=== PATIENT | female | born 1990 | race Caucasian/White ===

== ENCOUNTER 2017-11-24 22:29 | Emergency (ER) | payer OTHER ==
[2017-11-25] MEDS ORDERED: FENTANYL CITR 100 MCG/2 ML ONE (01:06)
[2017-11-25] MEDS ORDERED: NA CHLORIDE 0.9% 1,000 ML ONE (01:06)
[2017-11-25] MEDS ORDERED: ONDANSETRON 4 MG/2 ML VIAL ONE (01:06)
[2017-11-25] MEDS ORDERED: LORazepam 2 MG/ML VIAL ONE (01:23)
[2017-11-25 01:27] LABS: Absolute Monocytes 0.8 K/uL (0.1-1.3); Absolute Neutrophil 12.5 K/uL (1.8-8.0); Basophils % 0.1 % (0-1.3); Eosinophils % 0.1 % (0-4.4); Hematocrit 29.2 % (36.0-45.0); Lymphocytes % 6.7 % (15.3-44.8); MCH 23.3 pg (27.0-35.0); MCV 73.5 fL (80-100); MPV 9.2 fL (7.6-11.3); Monocytes % 5.5 % (3.3-12.3); RBC Red Blood Cell Count 3.97 M/uL (3.86-4.86)
[2017-11-25 01:41] LABS: Bicarbonate 22 mEq/L (21-31); Glucose Level 103 mg/dL (65-120); Potassium 3.4 mEq/L (3.6-5.0); Sodium Level 132 mEq/L (135-145)
[2017-11-25 01:46] LABS: ALT/SGPT 11 IU/L (10-60); AST/SGOT 18 IU/L (10-42); Albumin 3.3 g/dL (3.2-5.5); Alkaline Phosphatase 75 IU/L (42-121); Bilirubin Direct 0.1 mg/dL (0-0.2); Bilirubin Total 0.3 mg/dL (0.3-1.2); Creatine Phosphokinase 37 IU/L (22-269); Magnesium 1.8 mg/dL (1.8-2.5); Protein, Total 6.6 g/dL (6.0-8.3)
[2017-11-25 01:48] LABS: CKMB Creatine Kinase MB 1.1 ng/ml (0.3-4.0)
[2017-11-25 01:59] LABS: BUN Blood Urea Nitrogen < 5 mg/dL (6-20)
[2017-11-25 02:04] LABS: Protime INR 1.01
[2017-11-25 02:10] LABS: Blood Morphology Comment NOTED (NOT SEEN); Ovalocytes 2+; Platelet Estimate ADEQ
[2017-11-25] MEDS ORDERED: POTASSIUM CL SA 10 MEQ TAB PO ONE (02:42)
--- NOTE | 2017-11-25 02:45 | ER ---
Nurse's Notes [facility] Name: Treasure Srivastava Age: 27 yrs Sex: Female : 1990 Arrival Date: 11/24/2017 Time: 22:31 Bed 18 Private MD: Diagnosis: Chest pain on breathing; related conditions, unspecified, second trimester;Hypokalemia;Elevated white blood cell count;Bandemia Presentation: 11/24 22:37 Presenting complaint: Patient states: chest pain and SOA that started around 3am, kb1 reports awoke her out of her sleep. States pain has been constant and getting worse. States has a history of anxiety but this is different. Transition of care: patient was not received from another setting of care. Onset of symptoms was November 24, 2017 at 03:00. Care prior to arrival: None. 22:37 Method Of Arrival: Ambulatory kb1 22:37 Acuity: KAILEY 3 kb1 Triage Assessment: 22:40 General: Appears uncomfortable, Behavior is cooperative. Pain: Complains of pain in kb1 chest. Neuro: Level of Consciousness is awake, alert, obeys commands, Oriented to person, place, time, situation. Cardiovascular: Patient's skin is warm and dry. Respiratory: Airway is patent Respiratory effort is even, unlabored, Respiratory pattern is regular, symmetrical. GI: No signs and/or symptoms were reported involving the gastrointestinal system. : No signs and/or symptoms were reported regarding the genitourinary system. 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 - Social history:: Smoking status: Patient/guardian denies using tobacco. - Family history:: not pertinent. Screenin:43 Abuse screen: Denies threats or abuse. Nutritional screening: No deficits noted. kb1 Tuberculosis screening: No symptoms or risk factors identified. Fall Risk None identified. Assessment: 22:43 Reassessment: No changes from previously documented assessment. see triage assessment. kb1 23:42 Reassessment: Patient and/or family updated on plan of care and expected duration. Pain kb1 level reassessed. Patient is alert, oriented x 3, equal unlabored respirations, skin warm/dry/pink. complains of increased pain. 11/25 01:27 Reassessment: Pt decided that she did not want the Fentanyl and was just anxious and fc wanting something for that. Discussed with Dr Knutson and pt to get Ativan 0.5 mg ivp. 02:11 Reassessment: Patient and/or family updated on plan of care and expected duration. Pain kb1 level reassessed. Patient is alert, oriented x 3, equal unlabored respirations, skin warm/dry/pink. 03:06 Reassessment: Pt refused potassium and states wants to leave. AMA paperwork given to Pt kb1 and signed. Vital Signs: 11/24 22:40 BP 140 / 94; Pulse 86; Resp 22; Temp 98.1; Pulse Ox 100% ; Weight 72.57 kg; Height 5 kb1 ft. 5 in. (165.10 cm); Pain 10/10; 23:43 BP 134 / 82; Pulse 104; Resp 22; Pulse Ox 99% ; kb1 11/25 00:50 BP 128 / 77; Pulse 82; Resp 20; Pulse Ox 100% on R/A; Pain 10/10; fc 02:11 BP 125 / 76; Pulse 88; Resp 18; Pulse Ox 99% ; kb1 11/24 22:40 Body Mass Index 26.63 (72.57 kg, 165.10 cm) kb1 Vitals: 00:49 Heart Tones 148. ED Course: 11/24 22:31 Patient arrived in ED. do 22:37 Guillermina Bee, RN is Primary Nurse. kb1 22:39 Triage completed. kb1 22:40 Arm band placed on. kb1 22:43 Patient has correct armband on for positive identification. Placed in gown. Bed in low kb1 position. Call light in reach. Side rails up X 1. groundwater monitoring technician on. Pulse ox on. NIBP on. 22:43 No provider procedures requiring assistance completed. Patient maintains SpO2 kb1 saturation greater than 95% on room air. 11/25 00:30 Missed attempt(s): 20 gauge in right antecubital area. fc 00:35 Missed attempt(s): 22 gauge in left antecubital area. fc 00:44 Initial lab(s) drawn, by me, sent to lab. Inserted saline lock: 22 gauge in right aa1 forearm, using aseptic technique. Blood collected. 00:50 Sunny Knutson MD is Attending Physician. marissa 02:18 X-ray completed. Portable x-ray completed in exam room. Patient tolerated procedure kw well. 02:20 XRAY Chest (1 view) In Process Unspecified. EDMS 03:08 IV discontinued, intact, bleeding controlled, No redness/swelling at site. Pressure kb1 dressing applied. Administered Medications: 01:10 Drug: NS 0.9% 1000 ml Route: IV; Rate: 1 bolus; Site: right forearm; fc 01:30 Drug: Ativan 0.5 mg Route: IVP; Site: right antecubital; fc 02:10 Follow up: Response: No adverse reaction kb1 02:09 Drug: Ativan 0.5 mg Route: IVP; Site: right forearm; kb1 03:05 Follow up: Response: No adverse reaction kb1 02:10 Not Given (Patient Refused): Zofran 4 mg IVP once; over 2 minutes kb1 02:10 Not Given (Patient Refused): fentaNYL (PF) 25 mcg IVP once kb1 03:04 Not Given (Patient Refused): Potassium Chloride 20 mEq PO once kb1 Outcome: 02:45 Discharge ordered by . marissa 03:09 AMA AMA form signed kb1 03:09 Condition: stable 03:14 Patient left the ED. kb1 Signatures: Dispatcher [employer] EDMS Ami Pepper, HEIDY RN aa1 Sunny Knutson MD MD cha Chretien, Felicia RN RN Carly Ocampo Danielle do Brown, Kristina, RN RN kb1
--- NOTE | 2017-11-25 02:45 | EDPHYS ---
Physician Documentation [facility] Name: Treasure Srivastava Age: 27 yrs Sex: Female : 1990 Arrival Date: 11/24/2017 Time: 22:31 Bed 18 Private MD: ED Physician Sunny Knutson HPI: 11/25 00:55 This 27 yrs old Female presents to ER via Ambulatory with complaints of Chest marissa Pain, Breathing Difficulty, 16 weeks. 00:55 This 27 yrs old Female presents to ER via Ambulatory with complaints of Chest marissa Pain, Breathing Difficulty, 16 weeks. 00:55 The patient or guardian reports chest pain that is located primarily in the substernal marissa area. The pain does not radiate. Associated signs and symptoms: Pertinent positives: cough, shortness of breath. The chest pain is described as squeezing. Modifying factors: The symptoms are alleviated by nothing. the symptoms are aggravated by breathing. Severity of pain: At its worst the pain was mild moderate in the emergency department the pain is unchanged. The patient has experienced similar episodes in the past, a few times, panic attacks. READING SPECIALIST: 11/24 22:40 Currently kb1 Historical: - Allergies: 22:40 No Known Allergies; kb1 - Home Meds: 22:40 none [Active]; kb1 - PMHx: 22:40 Anxiety; kb1 - PSHx: 22:40 None; kb1 - Immunization history:: Flu vaccine is up to date. - Social history:: Smoking status: Patient/guardian denies using tobacco. - Family history:: not pertinent. ROS: 11/25 00:55 Constitutional: Negative for fever, chills, and weight loss, Eyes: Negative for injury, marissa pain, redness, and discharge, ENT: Negative for injury, pain, and discharge, Neck: Negative for injury, pain, and swelling, Abdomen/GI: Negative for abdominal pain, nausea, vomiting, diarrhea, and constipation, Back: Negative for injury and pain, : Negative for injury, bleeding, discharge, and swelling, MS/Extremity: Negative for injury and deformity, Skin: Negative for injury, rash, and discoloration, Neuro: Negative for headache, weakness, numbness, tingling, and seizure. Cardiovascular: Positive for chest pain. Respiratory: Positive for shortness of breath. Exam: 00:55 Constitutional: This is a well developed, well nourished patient who is awake, alert, marissa and in no acute distress. Head/Face: Normocephalic, atraumatic. Eyes: Pupils equal round and reactive to light, extra-ocular motions intact. Lids and lashes normal. Conjunctiva and sclera are non-icteric and not injected. Cornea within normal limits. Periorbital areas with no swelling, redness, or edema. ENT: Nares patent. No nasal discharge, no septal abnormalities noted. Tympanic membranes are normal and external auditory canals are clear. Oropharynx with no redness, swelling, or masses, exudates, or evidence of obstruction, uvula midline. Mucous membranes moist. Neck: Trachea midline, no thyromegaly or masses palpated, and no cervical lymphadenopathy. Supple, full range of motion without nuchal rigidity, or vertebral point tenderness. No Meningismus. Chest/axilla: Normal chest wall appearance and motion. Nontender with no deformity. No lesions are appreciated. Cardiovascular: Regular rate and rhythm with a normal S1 and S2. No gallops, murmurs, or rubs. Normal PMI, no JVD. No pulse deficits. Respiratory: Lungs have equal breath sounds bilaterally, clear to auscultation and percussion. No rales, rhonchi or wheezes noted. No increased work of breathing, no retractions or nasal flaring. Abdomen/GI: Soft, non-tender, with normal bowel sounds. No distension or tympany. No guarding or rebound. No evidence of tenderness throughout. Back: No spinal tenderness. No costovertebral tenderness. Full range of motion. Female : Normal external genitalia. Skin: Warm, dry with normal turgor. Normal color with no rashes, no lesions, and no evidence of cellulitis. MS/ Extremity: Pulses equal, no cyanosis. Neurovascular intact. Full, normal range of motion. Neuro: Awake and alert, GCS 15, oriented to person, place, time, and situation. Cranial nerves II-XII grossly intact. Motor strength 5/5 in all extremities. Sensory grossly intact. Cerebellar exam normal. Normal gait. Psych: Awake, alert, with orientation to person, place and time. Behavior, mood, and affect are within normal limits. 00:57 Musculoskeletal/extremity: DVT Exam: No signs of deep vein thrombosis. no pain, no marissa swelling, no tenderness, negative Homans' sign noted on exam, no appreciated bluish discoloration, no erythema, no increased warmth. Vital Signs: 11/24 22:40 BP 140 / 94; Pulse 86; Resp 22; Temp 98.1; Pulse Ox 100% ; Weight 72.57 kg; Height 5 kb1 ft. 5 in. (165.10 cm); Pain 10/10; 23:43 BP 134 / 82; Pulse 104; Resp 22; Pulse Ox 99% ; [facility] 11/25 00:50 BP 128 / 77; Pulse 82; Resp 20; Pulse Ox 100% on R/A; Pain 10/10; fc 02:11 BP 125 / 76; Pulse 88; Resp 18; Pulse Ox 99% ; [facility] 11/24 22:40 Body Mass Index 26.63 (72.57 kg, 165.10 cm) [facility] MDM: 00:51 Patient medically screened. [facility] 00:57 Data reviewed: vital signs, nurses notes, lab test result(s), EKG, radiologic studies, [facility] plain films. 04 00:51 Order name: Basic Metabolic Panel; Complete Time: 02:16 11/25 00:51 Order name: BNP; Complete Time: 02:16 11/25 00:51 Order name: CBC with Diff; Complete Time: 02:16 11/25 00:51 Order name: Ckmb; Complete Time: 02:16 11/25 00:51 Order name: CPK; Complete Time: 02:16 11/25 00:51 Order name: LFT's; Complete Time: 02:16 11/25 00:51 Order name: Magnesium; Complete Time: 02:16 11/25 00:51 Order name: PT-INR; Complete Time: 02:16 11/25 00:51 Order name: Ptt, Activated; Complete Time: 02:16 11/25 00:51 Order name: Troponin (emerg Dept Use Only); Complete Time: 02:16 11/25 01:21 Order name: D-Dimer; Complete Time: 02:16 EDMS 11/25 01:28 Order name: Manual Differential; Complete Time: 02:16 EDMS 11/25 00:51 Order name: XRAY Chest (1 view) 11/25 00:51 Order name: EKG; Complete Time: 00:56 11/25 00:51 Order name: Cardiac monitoring; Complete Time: 01:43 11/25 00:51 Order name: EKG - Nurse/Tech; Complete Time: :43 11/25 00:51 Order name: IV Saline Lock; Complete Time: :42 11/25 00:51 Order name: Labs collected and sent; Complete Time: :42 11/25 00:51 Order name: O2 Per Protocol; Complete Time: : 11/25 00:51 Order name: O2 Sat Monitoring; Complete Time: :42 11/25 00:55 Order name: FHT's; Complete Time: :42 marissa Administered Medications: 01:10 Drug: NS 0.9% 1000 ml Route: IV; Rate: 1 bolus; Site: right forearm; fc 01:30 Drug: Ativan 0.5 mg Route: IVP; Site: right antecubital; fc 02:10 Follow up: Response: No adverse reaction kb1 02:09 Drug: Ativan 0.5 mg Route: IVP; Site: right forearm; kb1 03:05 Follow up: Response: No adverse reaction kb1 02:10 Not Given (Patient Refused): Zofran 4 mg IVP once; over 2 minutes kb1 02:10 Not Given (Patient Refused): fentaNYL (PF) 25 mcg IVP once kb1 03:04 Not Given (Patient Refused): Potassium Chloride 20 mEq PO once kb1 Disposition: 11/25/17 02:45 Discharged to Home. Impression: Chest pain on breathing, related conditions, unspecified, second trimester, Hypokalemia, Elevated white blood cell count, Bandemia. - Condition is Stable. - Discharge Instructions: Nonspecific Chest Pain, Potassium Content of Foods, Hypokalemia, Leukocytosis. - Prescriptions for Amoxicillin 500 mg Oral Capsule - take 1 capsule by ORAL route every 8 hours for 10 days; 21 tablet. Vitamin 27- 0.8 mg Oral Tablet - take 1 tablet by ORAL route once daily; 30 tablet. - Medication Reconciliation Form, Thank You Letter, Antibiotic Education, Prescription Opioid Use form. - Follow up: Private Physician; When: Today; Reason: Recheck today's complaints, Continuance of care, Re-evaluation by your physician. - Problem is new. - Symptoms have improved. Signatures: Dispatcher [employer] EDMS Sunny Knutson MD MD cha Chretien, Felicia, RN RN Guillermina Esteban RN RN kb1 Corrections: (The following items were deleted from the chart) 01:09 00:56 Arterial Blood Gas+RC.LAB.BRZ ordered. EDMS EDMS 01:21 00:56 D-DIMER+COAG.LAB.BRZ ordered. EDMS EDMS
[2017-11-25 03:18] VITALS: TEMP 98.1
[2017-11-25 03:22] VITALS: BP 125/76; O2SAT 99
--- NOTE | 2017-11-25 07:01 | EKG ---
Test Date: 2017-11-24 Test Time: 22:36:50 Header Up: ALEKSANDRA MEASUREMENT RESULTS: Intervals: Rate: 78 RI: 120 QRSD: 90 QT: 388 QTc: 442 [place]: P: 15 RI: 120 QRS: -5 T: 52 INTERPRETIVE STATEMENTS: Normal sinus rhythm Normal ECG Compared to ECG 04/04/2017 10:00:56 Sinus arrhythmia no longer present Electronically Signed On 11-25-17 07:01:12 CDT by Crow Javier
--- NOTE | 2017-11-25 08:11 | RAD REPORT ---
EXAM DESCRIPTION: Etelvina Single View11/25/2017 2:24 am CLINICAL HISTORY: Chest pain COMPARISON: March 2017 FINDINGS: The lungs appear clear of acute infiltrate. The heart is normal size IMPRESSION: No acute abnormalities displayed
== END 2017-11-25 03:14 | disposition home or self-care (01) ==
LOC: ER 22:29
DX: R07.1 Chest pain on breathing (principal); E87.6 Hypokalemia; D72.825 Bandemia; Z3A.16 16 weeks gestation of pregnancy
CPT/HCPCS: 36415; 71045; 80048; 80076; 82550; 82553; 83735; 83880; 84484; 85025; 85379; 85610; 85730; 93005; 99285; J2405; J3010; J7030

== ENCOUNTER 2019-02-12 03:28 | Emergency (ER) | payer OTHER, SELFPAY ==
[2019-02-12] MEDS ORDERED: METOCLOPRAMIDE 10 MG/2mL INJ ONE (04:15)
[2019-02-12] MEDS ORDERED: KETOROLAC 30 MG/ML INJ ONE ×2 (04:15→05:52)
[2019-02-12] MEDS ORDERED: DIPHENHYDRAMINE 50 MG/ML VIAL ONE (04:15)
[2019-02-12 04:24] LABS: Absolute Lymphocytes (CBC) 1.8 K/uL (0.7-4.9); Basophils % 0.5 % (0-1.3); Eosinophils % 0.9 % (0-4.4); Hematocrit 37.5 % (36.0-45.0); Lymphocytes % 19.1 % (15.3-44.8); Monocytes % 8.3 % (3.3-12.3); RBC Red Blood Cell Count 4.45 M/uL (3.86-4.86)
[2019-02-12 04:39] LABS: Potassium 3.5 mmol/L (3.5-5.1)
[2019-02-12] MEDS ORDERED: NA CHLORIDE 0.9% 1,000 ML ONE (04:59)
--- NOTE | 2019-02-12 06:31 | ER ---
Nurse's Notes [facility] Name: Treasure Srivastava Age: 28 yrs Sex: Female : 1990 Arrival Date: 02/12/2019 Time: 03:31 Bed 20 Private MD: Diagnosis: Headache Presentation: 02/12 03:35 Presenting complaint: Patient states: I'm having bad headache for 4 days now. tonight rr5 suddenly I woke up tonight because of the severe pain,more on the back of my right eye. I took Tylenol, ibuprofen, Excedrin nothing worked. denies N/V. 03:35 Transition of care: patient was not received from another setting of care. Onset of rr5 symptoms was February 08, 2019. Risk Assessment: Do you want to hurt yourself or someone else? Patient reports no desire to harm self or others. Initial Sepsis Screen: Does the patient meet any 2 criteria? No. Patient's initial sepsis screen is negative. Does the patient have a suspected source of infection? No. Patient's initial sepsis screen is negative. Care prior to arrival: Medication(s) given: Motrin, Tylenol, Excedrin. 03:35 Method Of Arrival: Ambulatory rr5 03:35 Acuity: KAILEY 3 rr5 Triage Assessment: 03:45 Headache History: Denies prior headaches. General: Appears in no apparent distress. rr5 uncomfortable, Behavior is calm, cooperative, appropriate for age. Pain: Also complains of no other associated symptoms. 03:45 Pain: Complains of pain in right eye Pain radiates to right side of the head Pain rr5 currently is 8 out of 10 on a pain scale. Quality of pain is described as aching, Pain began 4 days Is intermittent. 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 - Social history:: Smoking status: Patient/guardian denies using tobacco, Patient/guardian denies using alcohol, street drugs. - Ebola Screening: : Patient negative for fever greater than or equal to 101.5 degrees Fahrenheit, and additional compatible Ebola Virus Disease symptoms Patient denies exposure to infectious person Patient denies travel to an Ebola-affected area in the 21 days before illness onset. Screenin:45 Abuse screen: Denies threats or abuse. Denies injuries from another. Nutritional rr5 screening: No deficits noted. Tuberculosis screening: No symptoms or risk factors identified. Fall Risk None identified. Total Louis Fall Scale indicates No Risk (0-24 pts). Assessment: 03:45 General: Appears in no apparent distress. uncomfortable, Behavior is calm, cooperative, rr5 appropriate for age. 03:45 Pain: Complains of pain in right eye Pain radiates to right side of head Pain currently rr5 is 8 out of 10 on a pain scale. Quality of pain is described as aching, Pain began 4 days Is continuous. Neuro: Level of Consciousness is awake, alert, obeys commands, Oriented to person, place, time, situation, Appropriate for age. Cardiovascular: Capillary refill < 3 seconds Patient's skin is warm and dry. Respiratory: Airway is patent Respiratory effort is even, unlabored, Respiratory pattern is regular, symmetrical. GI: No signs and/or symptoms were reported involving the gastrointestinal system. : No signs and/or symptoms were reported regarding the genitourinary system. EENT: Eyes PERRLA. Reports pain in right eye. Derm: Skin is intact, Skin temperature is warm. Musculoskeletal: Circulation, motion, and sensation intact. Capillary refill < 3 seconds, Range of motion: intact in all extremities. 04:40 Reassessment: Patient appears in no apparent distress at this time. Patient is alert, rr5 oriented x 3, equal unlabored respirations, skin warm/dry/pink. awaiting for CT and laboratory result. Patient states symptoms have not improved. 05:35 Reassessment: Patient appears in no apparent distress at this time. Patient is alert, rr5 oriented x 3, equal unlabored respirations, skin warm/dry/pink. reassessment done by ED provider complaining of headache pain score 6/10,with order made and carried out. 06:40 Reassessment: Patient appears in no apparent distress at this time. Patient is alert, rr5 oriented x 3, equal unlabored respirations, skin warm/dry/pink. discharge instruction given and explained without complaints made. Patient states feeling better. Patient states symptoms have improved. Vital Signs: 03:40 BP 146 / 98; Pulse 90; Resp 17; Temp 100.2; Pulse Ox 100% ; Weight 79.38 kg; Height 5 rr5 ft. 5 in. (165.10 cm); Pain 8/10; 04:40 BP 115 / 70; Pulse 85; Resp 17; Temp 100; Pulse Ox 99% ; Pain 8/10; rr5 05:40 BP 98 / 54; Pulse 82; Resp 17; Temp 99.8; Pulse Ox 98% on R/A; Pain 6/10; rr5 06:40 BP 117 / 72; Pulse 92; Resp 16; Temp 99.5; Pulse Ox 98% ; Pain 4/10; rr5 03:40 Body Mass Index 29.12 (79.38 kg, 165.10 cm) rr5 ED Course: 03:31 Patient arrived in ED. do 03:34 Jaun Rosales RN is Primary Nurse. rr5 03:37 Xiang Acevedo MD is Attending Physician. gs 03:43 Triage completed. rr5 03:45 Arm band placed on right wrist. rr5 03:49 Patient has correct armband on for positive identification. Bed in low position. Call rr5 light in reach. Lights dimmed. Warm blanket given. 04:10 Inserted saline lock: 22 gauge in right forearm, using aseptic technique. Blood rr5 collected. 04:44 CT Head Brain wo Cont In Process Unspecified. EDMS 06:43 No provider procedures requiring assistance completed. IV discontinued, intact, rr5 bleeding controlled, No redness/swelling at site. Pressure dressing applied. Administered Medications: 04:10 Drug: Reglan 10 mg Route: IVP; Site: right forearm; rr5 05:10 Follow up: Response: No adverse reaction rr5 04:13 Drug: Benadryl 25 mg Route: IVP; Site: right forearm; rr5 05:15 Follow up: Response: No adverse reaction rr5 04:15 Drug: TORadol - Ketorolac 15 mg Route: IVP; Site: right forearm; rr5 05:15 Follow up: Response: Pain is decreased rr5 04:45 Drug: NS 0.9% 1000 ml Route: IV; Rate: 1 bolus; Site: right forearm; rr5 05:41 Follow up: Response: No adverse reaction; IV Status: Completed infusion; IV Intake: rr5 1000ml 05:40 Drug: TORadol - Ketorolac 15 mg Route: IVP; Site: right forearm; rr5 06:45 Follow up: Response: Pain is decreased rr5 Intake: 05:41 IV: 1000ml; Total: 1000ml. rr5 Outcome: 06:30 Discharge ordered by . 06:43 Discharged to home ambulatory. rr5 06:43 Condition: stable 06:43 Discharge instructions given to patient, Instructed on discharge instructions, follow up and referral plans. medication usage, Demonstrated understanding of instructions, follow-up care, medications, Prescriptions given X 1. 06:45 Patient left the ED. rr5 Signatures: Dispatcher [employer] EDMS Sharonda Yepez Gregory, MD MD gs Roque, Raymond RN RN rr5
--- NOTE | 2019-02-12 06:31 | EDPHYS ---
Physician Documentation [facility] Name: Treasure Srivastava Age: 28 yrs Sex: Female : 1990 Arrival Date: 02/12/2019 Time: 03:31 Bed 20 Private MD: ED Physician Xiang Acevedo HPI: 02/12 06:26 This 28 yrs old Female presents to ER via Ambulatory with complaints of gs Headache > 24hrs Old, Eye Pain. 06:26 The patient complains of pain to the right yazidism. The patient describes the headache gs as pounding, throbbing. Onset: The symptoms/episode began/occurred gradually, 3 day(s) ago, started like a regular headache, intermittent. Associated signs and symptoms: Pertinent negatives: altered mental status, fever, paresthesias, Photophobia sinus congestion, vomiting. Severity of symptoms: At its worst the pain was severe, in the emergency department the pain has improved, mildly. The patient has experienced a previous episode, but today's symptoms are worse. The patient has not recently seen a physician. 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 - Social history:: Smoking status: Patient/guardian denies using tobacco, Patient/guardian denies using alcohol, street drugs. - Ebola Screening: : Patient negative for fever greater than or equal to 101.5 degrees Fahrenheit, and additional compatible Ebola Virus Disease symptoms Patient denies exposure to infectious person Patient denies travel to an Ebola-affected area in the 21 days before illness onset. ROS: 06:26 All other systems are negative. gs Exam: 06:26 Head/Face: Normocephalic, atraumatic. Eyes: Pupils equal round and reactive to light, gs extra-ocular motions intact. Lids and lashes normal. Conjunctiva and sclera are non-icteric and not injected. Cornea within normal limits. Periorbital areas with no swelling, redness, or edema. ENT: Nares patent. No nasal discharge, no septal abnormalities noted. Tympanic membranes are normal and external auditory canals are clear. Oropharynx with no redness, swelling, or masses, exudates, or evidence of obstruction, uvula midline. Mucous membranes moist. 06:26 Chest/axilla: Normal chest wall appearance and motion. Nontender with no deformity. No lesions are appreciated. Cardiovascular: Regular rate and rhythm with a normal S1 and S2. No gallops, murmurs, or rubs. Normal PMI, no JVD. No pulse deficits. Respiratory: Lungs have equal breath sounds bilaterally, clear to auscultation and percussion. No rales, rhonchi or wheezes noted. No increased work of breathing, no retractions or nasal flaring. Abdomen/GI: Soft, non-tender, with normal bowel sounds. No distension or tympany. No guarding or rebound. No evidence of tenderness throughout. Back: No spinal tenderness. No costovertebral tenderness. Full range of motion. Skin: Warm, dry with normal turgor. Normal color with no rashes, no lesions, and no evidence of cellulitis. MS/ Extremity: Pulses equal, no cyanosis. Neurovascular intact. Full, normal range of motion. 06:26 Constitutional: The patient appears alert, awake. 06:26 Neck: ROM/movement: Meningeal signs: are not present, Kernig's sign is negative, Brudzinski's sign is negative. 06:26 Neuro: Orientation: is normal, Mentation: is normal, Memory: is normal, Cranial nerves: CN II- XII are normal as tested, Cerebellar function: is grossly normal, Motor: strength is 5/5 in all extremities, Sensation: is normal, no obvious gross deficits. 06:26 Constitutional: The patient appears non-toxic. Vital Signs: 03:40 BP 146 / 98; Pulse 90; Resp 17; Temp 100.2; Pulse Ox 100% ; Weight 79.38 kg; Height 5 rr5 ft. 5 in. (165.10 cm); Pain 8/10; 04:40 BP 115 / 70; Pulse 85; Resp 17; Temp 100; Pulse Ox 99% ; Pain 8/10; rr5 05:40 BP 98 / 54; Pulse 82; Resp 17; Temp 99.8; Pulse Ox 98% on R/A; Pain 6/10; rr5 06:40 BP 117 / 72; Pulse 92; Resp 16; Temp 99.5; Pulse Ox 98% ; Pain 4/10; rr5 03:40 Body Mass Index 29.12 (79.38 kg, 165.10 cm) rr5 MDM: 03:55 Patient medically screened. gs 06:26 Differential diagnosis: migraine, tension headache, vasomotor headache. Data reviewed: vital signs, nurses notes. Counseling: I had a detailed discussion with the patient and/or guardian regarding: the historical points, exam findings, and any diagnostic results supporting the discharge/admit diagnosis, lab results, radiology results, the need for outpatient follow up, prefers not to do lp, ct done for persistent head without clear primary headache syndrome history. Response to treatment: the patient's symptoms have markedly improved after treatment, the patient's condition has returned to base line, and as a result, I will discharge patient. 02/12 03:57 Order name: CBC with Diff; Complete Time: 04:33 02/12 03:57 Order name: Basic Metabolic Panel; Complete Time: 04:41 02/12 03:57 Order name: CT Head Brain wo Cont gs Administered Medications: 04:10 Drug: Reglan 10 mg Route: IVP; Site: right forearm; rr5 05:10 Follow up: Response: No adverse reaction rr5 04:13 Drug: Benadryl 25 mg Route: IVP; Site: right forearm; rr5 05:15 Follow up: Response: No adverse reaction rr5 04:15 Drug: TORadol - Ketorolac 15 mg Route: IVP; Site: right forearm; rr5 05:15 Follow up: Response: Pain is decreased rr5 04:45 Drug: NS 0.9% 1000 ml Route: IV; Rate: 1 bolus; Site: right forearm; rr5 05:41 Follow up: Response: No adverse reaction; IV Status: Completed infusion; IV Intake: rr5 1000ml 05:40 Drug: TORadol - Ketorolac 15 mg Route: IVP; Site: right forearm; rr5 06:45 Follow up: Response: Pain is decreased rr5 Disposition: 02/12/19 06:30 Discharged to Home. Impression: Headache. - Condition is Stable. - Discharge Instructions: General Headache Without Cause. - Prescriptions for Fiorinal 50- 325-40 mg Oral Capsule - take 1 capsule by ORAL route every 6 hours As needed - not to exceed 6 capsules per day; 10 capsule. - Medication Reconciliation Form, Thank You Letter, Antibiotic Education, Prescription Opioid Use form. - Follow up: Private Physician; When: 2 - 3 days; Reason: Re-evaluation by your physician. Signatures: Dispatcher [employer] EDAK Xiang Acevedo MD MD gs Roque, Raymond RN RN rr5 Corrections: (The following items were deleted from the chart) 06:45 06:30 02/12/2019 06:30 Discharged to Home. Impression: Headache. Condition is Stable. rr5 Forms are Medication Reconciliation Form, Thank You Letter, Antibiotic Education, Prescription Opioid Use. Follow up: Private Physician; When: 2 - 3 days; Reason: Re-evaluation by your physician. gs
--- NOTE | 2019-02-13 10:36 | RAD REPORT ---
EXAM DESCRIPTION: CT HEAD WITHOUT CONTRAST 02/12/2019 CLINICAL HISTORY: Headache COMPARISON: None. TECHNIQUE: Axial [address] imaging of the brain. Reformatted coronal and sagittal images ob tained. This examination was performed according to our departmental dose optimization program, which include s automated exposure control, adjustment of the mA and/or kV according to patient size and/or use of iterative reconstruction technique. FINDINGS: Ventricle size and contour is normal. Extra-axial fluid spaces appear normal over the cere bral convexities. Dystrophic anterior falcine calcifications. No intracranial hemorrhage. No mass or midline shift. No edema. Normal cerebellum and vermis. Fourth ventricle is midline. Prepontine cisterns are not effaced. Avelina l sella contents Normal appearance of the globes and remaining intraorbital contents. The paranasal sinuses. Mastoid a ir cells are clear. Skull base and calvarium are intact. IMPRESSION: 1. Negative CT brain. Electronically signed by: Monique Sam DO 02/12/2019 4:58 AM CDT Due to temporary technical issues with the PACS/Fluency reporting system, reports are being signed by the in house radiologist as a courtesy to ensure prompt reporting. The interpreting radiologist is f ully responsible for the content of the report.
== END 2019-02-12 06:45 | disposition home or self-care (01) ==
LOC: ER 03:28
DX: R51 Headache (principal); F41.9 Anxiety disorder, unspecified
CPT/HCPCS: 36415; 70450; 80048; 85025; 96361; 96374; 96375; 99284; J2765; J7030

== ENCOUNTER 2024-04-16 03:15 | Emergency (ER) | payer OTHER ==
--- OUTSIDE RECORDS SUMMARY | 2024-04-16 03:18 | XMS REPORT | Continuity of Care Document ---
Author Name Unknown Address [address] [place] [address] Organization [facility] thconnect Address 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 Encounter for routine gynecologi nickolas examinatio n Encounter for routine gynecologi nickolas examinatio n Disease Active 2012-08 00:00: 00 Overview: Formattin g of this note might be different from the original. 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 Depo-Prove ra contracept mari status Depo-Prove ra contracept mari status Disease Active 2012-08 00:00: 00 [facility] Family history of ovarian cancer Family history of ovarian cancer Disease Active 2012-08 00:00: 00 [facility] Normal delivery Normal delivery Disease Resolve d 2011-08 00:00: 00 2013-06-19 00:00:00 2013-06-19 15:39:46 [facility] Hypothyroi dism Hypothyroi dism Disease Resolve d 2011-08 00:00: 00 2013-06-19 00:00:00 2013-06-19 15:39:48 [facility] Other venous complicati on, with delivery, with or without mention of antepartum condition Other venous complicati on, with delivery, with or without mention of antepartum condition Disease Resolve d 2011-08 00:00: 00 2013-06-19 00:00:00 2013-06-19 15:39:51 [facility] Allergies, Adverse Reactions, Alerts Allergy Name Allergy Type Status Severity Reaction(s) Onset Date Inactive Date Treating Clinician Comments Source MORPHINE DRUG INGREDI Active SOB 2015-08 00:00: 00 [facility] Morphine Propensi ty to adverse reaction s Active Shortness of Breath 2015-08 00:00: 00 [facility] Social History Social Habit Start Date Stop Date Quantity Comments [facility] intake 2023-09-07 00:00:00 2023-09-07 00:00:00 0 /d [facility] History of Social function 2023-09-07 00:00:00 2023-09-07 00:00:00 [facility] Tobacco use and exposure 2012-05-28 00:00:00 2012-05-28 00:00:00 Smokeless tobacco non-user [facility] Sex assigned at 1990 00:00:00 1990 00:00:00 [facility] Smoking Status Start Date Stop Date Source Never smoked tobacco [facility] Medications Ordered Medication Name Filled Medication Name Start Date Stop Date Current Medication? Ordering Clinician Indication Dosage Frequency Signature (SIG) Comments Components Source HYDROcodone -acetaminop hen (NORCO) 10-325 mg tablet 1 tablet 04-15 02:00: 00 04-15 01:14 :00 No 1{tbl} 1 tablet, Oral, ONCE, 1 dose, On Wed04/14/24 at 2100, [facility] ondansetron (ZOFRAN-ODT ) disintegrat ing tablet 4 mg 04-15 01:45: 00 04-15 01:14 :00 No 4mg 4 mg, Oral, ONCE, 1 dose, On Wed04/14/24 at 2045, [facility] amoxicillin (TRIMOX) capsule 500 mg 04-15 01:00: 00 04-15 01:14 :00 No 500mg 500 mg, Oral, ONCE, 1 dose, On Wed04/14/24 at 2000, [facility], Reason for Anti-Infec tive: Documented Infection, Documented Infection Site: HEENT, Duration of Therapy: Once (ED) [facility] amoxicillin 500 mg capsule 04-14 00:00: 00 Yes [id number] 500mg Take 1 capsule by mouth in the morning and 1 capsule at noon and 1 capsule in the evening. [facility] ondansetron 4 mg disintegrat ing tablet 04-14 00:00: 00 Yes [id number] 4mg Take 1 tablet by mouth every 4 (four) hours as needed for Nausea and Vomiting (N/V). [facility] naproxen 500 mg tablet 04-14 00:00: 04-25 04:59 :00 Yes [id number] 500mg Take 1 tablet by mouth in the morning and 1 tablet in the evening. Take with meals. Do all this for [address] [facility] HYDROcodone -acetaminop hen 5-325 mg tablet 04-14 00:00: 00 04-22 04:59 :00 Yes [id number] 1{tbl} Take 1-2 tablets by mouth every 6 (six) hours as needed for Pain (scale 4-6) for up to 7 days. Indication s: acute pain [facility] ondansetron (ZOFRAN ODT) 4 mg disintegrat ing tablet 05-12 00:00: 00 04-14 00:00 :00 No 4mg Take 1 tablet by mouth every 8 (eight) hours as needed for Nausea and Vomiting (N/V). [facility] proMETHazin e 25 mg tablet 10-02 00:00: 00 Yes 25mg Take 1 tablet by mouth every 6 (six) hours as needed for Nausea and Vomiting (N/V). [facility] promethazin e 50 mg suppository 10-02 00:00: 00 Yes 50mg Insert 1 Suppositor y into rectum every 6 (six) hours as needed for Nausea and Vomiting (N/V). [facility] ondansetron (ZOFRAN ODT) 4 mg disintegrat ing tablet 10-02 00:00: 00 04-14 00:00 :00 No 8mg Take 2 tablets by mouth every 8 (eight) hours as needed for N/V alternatin g with Promethazi ne. [facility] proMETHazin e 25 mg tablet 09-21 00:00: 00 Yes 25mg Take 1 tablet by mouth every 6 (six) hours as needed for Nausea and Vomiting (N/V). [facility] Immunizations Ordered Immunization Name Filled Immunization Name Date Status Comments Source Rubella Unknown Completed [facility] TDAP Unknown Completed [facility] Vital Signs Vital Name Observation Time Observation Value Comments S our Systolic blood pressure 2024-04-15 01:13:00 134 mm[Hg] [facility] Diastolic blood pressure 2024-04-15 01:13:00 89 mm[Hg] [facility] Heart rate 2024-04-15 01:13:00 85 /min [facility] Body temperature 2024-04-15 01:13:[address] [facility] Respiratory rate 2024-04-15 01:13:00 16 /min [facility] Oxygen saturation in Arterial blood by Pulse oximetry 2024-04-15 01:13:00 99 /min [facility] Body height 2024-04-15 00:42:[address] [facility] Body weight 2024-04-15 00:42:[address] [facility] BMI 2024-04-15 00:42:00 27.44 kg/m2 [facility] Encounters Start Date/Time End Date/Time Encounter Type Admission Type Attending Clinicians Care Facility Care Department Encounter ID Source 2024-04-14 19:46:00 2024-04-14 20:29:00 Emergency [facility] [id number] [facility] 2024-04-14 19:46:00 2024-04-14 20:29:00 [facility] [id number] [facility] Notes Date/Time Note Provider Source 2024-04-14 20:17:21 Pt discharged with diagnosis of dental abcess, encouraged hydration. Printed and verbal instructions reviewed with and given to pt. Pt. verbalized understanding of teaching and recommended follow-up. Denies questions or concerns at this time. Pt ambulatory at discharge. Appears in no apparent distress. No ataxia noted. Pt accompanied by mom Advised to seek medical attention for new/prolonged/worsening of symptoms No adverse reaction to meds given in ER noted upon discharge Nori Fisher RN [facility] 2024-04-14 19:41:19 Pt arrives ambulatory to ED c/o left side jaw pain and swelling that began overnight last night. She says she couldn't get into a dentist today so she came in here to get relief from the pain. Alycia Valverde RN [facility]
[2024-04-16] MEDS ORDERED: DOXYCYCLINE 100 MG CAP PO ONE (04:06)
[2024-04-16] MEDS ORDERED: ONDANSETRON 4 MG (ODT) TAB ONE (04:06)
[2024-04-16] MEDS ORDERED: TRAMADOL HCL 50 MG TAB ONE (04:07)
--- NOTE | 2024-04-16 04:52 | EDPHYS ---
Physician Documentation [facility] Name: Treasure Cobian Age: 34 yrs Sex: Female : 1990 Arrival Date: 04/16/2024 Time: 03:15 Bed DX4 Private MD: ED Physician Avtar Flanagan HPI: 04/16 04:50 This 34 yrs old Female presents to ER via Ambulatory with complaints of sp4 Toothache. 04:53 Patient presents with acute left lower dental pain starting 2 days ago associated now sp4 with facial swelling left lower side . 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 - Infectious Disease History:: Denies. - Social history:: Smoking status: Patient denies any tobacco usage or history of. Patient/guardian denies using alcohol, street drugs, IV drugs. - Family history:: not pertinent. ROS: 04:53 Constitutional: Negative for fever, chills, and weight loss, negative dental pain left sp4 lower side 04:53 All other systems are negative, Exam: 04:53 Constitutional: This is a well developed, well nourished patient who is awake, alert, sp4 and in no acute distress. Head/Face: Normocephalic, atraumatic. Positive left lower facial swelling indicative of dental abscess Eyes: Pupils equal round and reactive to light, extra-ocular motions intact. Lids and lashes normal. Conjunctiva and sclera are not injected. Cornea within normal limits. Periorbital areas with no swelling, redness, or edema. ENT: Nares patent. No nasal discharge, no septal abnormalities noted. Tympanic membranes are normal and external auditory canals are clear. Oropharynx with no redness, swelling, or masses, exudates, or evidence of obstruction, uvula midline. Mucous membranes moist. Neck: Trachea midline, no thyromegaly or masses palpated, and no cervical lymphadenopathy. Supple, full range of motion without nuchal rigidity, or vertebral point tenderness. Chest/axilla: Normal chest wall appearance and motion. Nontender with no deformity. No lesions are appreciated. Cardiovascular: Regular rate and rhythm with a normal S1 and S2. No gallops, murmurs, or rubs. Normal PMI, no JVD. No pulse deficits. Respiratory: Lungs have equal breath sounds bilaterally, clear to auscultation and percussion. No rales, rhonchi or wheezes noted. No increased work of breathing, no retractions or nasal flaring. Abdomen/GI: Soft, with normal bowel sounds. No distension or tympany. No guarding or rebound. No evidence of tenderness throughout. Back: No spinal tenderness. No costovertebral tenderness. Skin: Warm, dry with normal turgor. Normal color with no rashes, no lesions, and no evidence of cellulitis. MS/ Extremity: Pulses equal, no cyanosis. Neurovascular intact. Full, normal range of motion. Neuro: Awake and alert, GCS 15, oriented to person, place, time, and situation. Cranial nerves II-XII grossly intact. Motor strength 5/5 in all extremities. Sensory grossly intact. Psych: Awake, alert, with orientation to person, place and time. Behavior, mood, and affect are within normal limits Vital Signs: 03:27 BP 130 / 86; Pulse 88; Resp 17; Temp 97.7; Pulse Ox 100% ; Weight 79.38 kg; Height 5 jj7 ft. 6 in. ; Pain 8/10; 04:30 BP 127 / 80; Pulse 82; Resp 17; Pulse Ox 99% ; jj7 05:14 BP 121 / 82; Pulse 79; Resp 19; Temp 98.4; Pulse Ox 100% ; Pain 2/10; jj7 03:27 Body Mass Index 28.25 (79.38 kg, 167.64 cm) j7 03:27 Pain Scale: Adult jj7 05:14 Pain Scale: Adult jj7 Oden Coma Score: 04:53 Eye Response: spontaneous(4). Motor Response: obeys commands(6). Verbal Response: sp4 oriented(5). Total: 15. MDM: 03:42 Patient medically screened. sp4 04:53 Differential diagnosis: dental caries, gingivitis, dental abscess, pericoronitis, sp4 aphthous ulcers. Data reviewed: vital signs, nurses notes, lab test result(s), UPT: negative. ED course: Stable for discharge home. Patient was offered drainage of dental abscess - she has declined. Will be prescribed p.o. clindamycin and doxycycline. Will be advised to see dentist [facility] for dental work or extraction. 04/16 03:57 Order name: Test, Urine sp4 Administered Medications: 04:02 CANCELLED (PT STATES SHE NOW REMEMBERS SHE IS ALLERGIC TO IT): rocephin (ceftriaxone)1 jj7 grams IM once 04:12 Drug: Doxycycline PO 100 mg PO once Route: PO; jj7 05:01 Follow up: Response: Marked relief of symptoms jj7 05:01 Follow up: Response: No adverse reaction jj7 04:12 Drug: traMADol PO 50 mg PO once Route: PO; jj7 05:00 Follow up: Response: Marked relief of symptoms jj7 05:01 Follow up: Response: Marked relief of symptoms jj7 04:12 Drug: Ondansetron PO 8 mg PO once Route: PO; jj7 04:59 Follow up: Response: No adverse reaction jj7 04:57 Drug: Ketorolac IM 60 mg IM once Route: IM; Site: left deltoid; jj7 05:13 Follow up: Response: Marked relief of symptoms; Pain is decreased jj7 04:57 Drug: Clindamycin PO 300 mg PO once Route: PO; jj7 05:02 Follow up: Response: No adverse reaction jj7 Disposition Summary: 04/16/24 04:51 Discharge Ordered Notes: Please see your Dentist [facility] for dental procedure Location: Home sp4 Problem: new sp4 Symptoms: have improved sp4 Condition: Stable sp4 Diagnosis - Encounter for screening for dental disorders sp4 - Acute dental pain, Acute Left Lower Gingival abscess, acute left lower dental sp4 abscess tooth #18 and # 19 Followup: sp4 - With: Private Physician - When: 2 - 3 days - Reason: Recheck today's complaints Discharge Instructions: - Discharge Summary Sheet sp4 - Dental Abscess, Facy-eg-Yire sp4 Forms: - Patient Portal Instructions sp4 Prescriptions: - Clindamycin HCl 300 mg Oral Capsule - take 1 capsule ORAL route every 6 hours for 10 days; 40 capsule; Refills: 0, sp4 Product Selection Permitted - Ibuprofen 800 mg Oral Tablet - take 1 tablet ORAL route every 8 hours As needed take with food; 30 tablet; sp4 Refills: 0, Product Selection Permitted - Tramadol 50 mg Oral tablet - take 1 tablet ORAL route every 8 hours PRN pain; 20 tablet; Refills: 0, Product sp4 Selection Permitted - Doxycycline Monohydrate 100 mg Oral Tablet - take 1 tablet ORAL route every 12 hours for 10 days; 20 tablet; Refills: 0, sp4 Product Selection Permitted Signatures: Dispatcher [employer] Sydney Villalobos RN RN jj7 Avtar Flanagan MD MD sp4 Corrections: (The following items were deleted from the chart) 04:02 03:57 Rocephin (cefTRIAXone) IM 1 grams IM once ordered. sp4 jj7
--- NOTE | 2024-04-16 04:52 | ER ---
Nurse's Notes [facility] Name: Treasure Cobian Age: 34 yrs Sex: Female : 1990 Arrival Date: 04/16/2024 Time: 03:15 Bed DX4 Private MD: Diagnosis: Encounter for screening for dental disorders;Acute dental pain, Acute Left Lower Gingival abscess, acute left lower dental abscess tooth #18 and # 19 Presentation: 04/16 03:27 Chief complaint: Patient states: TOOTHACHE STARTED WEDNESDAY. CAN'T GET IN TO THE DENTIST j7 UNTIL NEXT WEEK. HAVE BEEN TAKING TYLENOL AND MOTRIN NO RELIEF. LEFT SIDED FACIAL SWELLING. Coronavirus screen: At this time, the client does not indicate any symptoms associated with coronavirus-19. Ebola Screen: No symptoms or risks identified at this time. Initial Sepsis Screen: Does the patient meet any 2 criteria? No. Patient's initial sepsis screen is negative. Does the patient have a suspected source of infection? No. Patient's initial sepsis screen is negative. Risk Assessment: Do you want to hurt yourself or someone else? Patient reports no desire to harm self or others. Onset of symptoms was April 14, 2024. 03:27 Method Of Arrival: Ambulatory [facility] 03:27 Acuity: KAILEY 5 jj7 Triage Assessment: 03:30 General: Appears in no apparent distress. uncomfortable, Behavior is calm, cooperative, jj7 appropriate for age. Pain: Complains of pain in lower left first molar. EENT: Reports pain in left jaw. 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 - Infectious Disease History:: Denies. - Social history:: Smoking status: Patient denies any tobacco usage or history of. Patient/guardian denies using alcohol, street drugs, IV drugs. - Family history:: not pertinent. Screenin:[facility] ED Fall Risk Assessment (Adult) History of falling in the last 3 months, jj7 including since admission No falls in past 3 months (0 pts) Confusion or Disorientation No (0 pts) Intoxicated or Sedated No (0 pts) Impaired Gait No (0 pts) Mobility Assist Device Used No (0 pt) Altered Elimination No (0 pt) Score/Fall Risk Level 0 - 2 = Low Risk Oriented to surroundings, Maintained a safe environment, Educated pt \T\ family on fall prevention, incl call for assistance when getting out of bed, Assessed \T\ reinforced patient's understanding of fall precautions. Abuse screen: Denies threats or abuse. Nutritional screening: No deficits noted. Tuberculosis screening: No symptoms or risk factors identified. Assessment: 03:32 Reassessment: SEE TRIAGE ASSESSMENT. jj7 Vital Signs: 03:27 BP 130 / 86; Pulse 88; Resp 17; Temp 97.7; Pulse Ox 100% ; Weight 79.38 kg; Height 5 jj7 ft. 6 in. ; Pain 8/10; 04:30 BP 127 / 80; Pulse 82; Resp 17; Pulse Ox 99% ; jj7 05:14 BP 121 / 82; Pulse 79; Resp 19; Temp 98.4; Pulse Ox 100% ; Pain 2/10; jj7 03:27 Body Mass Index 28.25 (79.38 kg, 167.64 cm) jj7 03:27 Pain Scale: Adult jj7 05:14 Pain Scale: Adult jj7 Elliott Coma Score: 04:53 Eye Response: spontaneous(4). Motor Response: obeys commands(6). Verbal Response: sp4 oriented(5). Total: 15. ED Course: 03:21 Patient arrived in ED. gm2 03:30 Triage completed. jj7 03:30 Arm band placed on. jj7 03:32 Patient has correct armband on for positive identification. Provided Education on: WAIT jj7 TIMES. 03:32 No provider procedures requiring assistance completed. jj7 03:37 Avtar Flanagan MD is Attending Physician. jj7 04:13 Test, Urine Sent. jj7 05:14 Patient did not have IV access during this emergency room visit. jj7 Administered Medications: 04:02 CANCELLED (PT STATES SHE NOW REMEMBERS SHE IS ALLERGIC TO IT): rocephin (ceftriaxone)1 jj7 grams IM once 04:12 Drug: Doxycycline PO 100 mg PO once Route: PO; jj7 05:01 Follow up: Response: Marked relief of symptoms jj7 05:01 Follow up: Response: No adverse reaction jj7 04:12 Drug: traMADol PO 50 mg PO once Route: PO; jj7 05:00 Follow up: Response: Marked relief of symptoms jj7 05:01 Follow up: Response: Marked relief of symptoms jj7 04:12 Drug: Ondansetron PO 8 mg PO once Route: PO; jj7 04:59 Follow up: Response: No adverse reaction jj7 04:57 Drug: Ketorolac IM 60 mg IM once Route: IM; Site: left deltoid; jj7 05:13 Follow up: Response: Marked relief of symptoms; Pain is decreased jj7 04:57 Drug: Clindamycin PO 300 mg PO once Route: PO; jj7 05:02 Follow up: Response: No adverse reaction jj7 Medication: 03:32 VIS not applicable for this client. jj7 Outcome: 04:51 Discharge ordered by . ceasar 05:14 Discharged to home ambulatory, jj7 05:14 Condition: improved 05:14 Discharge instructions given to patient, Instructed on discharge instructions, medication usage, Demonstrated understanding of instructions, medications, Prescriptions given X 4, 05:15 Patient left the ED. jj7 Signatures: Sydney Pablo RN RN jj7 Avtar Flanagan MD MD sp4 Malinda Carias 2
[2024-04-16] MEDS ORDERED: KETOROLAC 30 MG/ML INJ ONE (04:53)
[2024-04-16 05:05] LABS: Specific Gravity 1.012 (1.005-1.030)
[2024-04-16 05:26] VITALS: BP 121/82; TEMP 98.4; O2SAT 100
== END 2024-04-16 05:15 | disposition home or self-care (01) ==
LOC: ER 03:15
DX: K04.7 Periapical abscess without sinus (principal)
CPT/HCPCS: 81025; 96372; 99284; Q0162

== ENCOUNTER 2024-04-24 18:28 | Emergency (ER) | payer OTHER ==
--- OUTSIDE RECORDS SUMMARY | 2024-04-24 18:30 | XMS REPORT | Continuity of Care Document ---
Author Name Unknown Address [address] [place] [address] Organization [facility] thconnect Address [address] [place] [address] Care Team Providers Care Clinical Resource Director Name Role Phone Pcp, Patient Does Not Have A Primary Care Physic sierra EVELIO CAIN Attending Clinician Unavailable EVELIO CAIN Attending Clinician Unavailable Evelio Cain MD Attending Clinician Payers Payer Name Policy Type Policy Number Effective Date Expirati on Date Source [employer] [id number] 2023 00:00:00 Problems Condition Name Condition Details Condition Category Status Onset Date Resolution Date Last Treatment Date Treating Clinician Comments Source Rubella immune Rubella immune Disease Active 2012-08 00:00: 00 [facility] Encounter for routine gynecologi nickolas examinatio n Encounter for routine gynecologi nickolas examinatio n Disease Active 2012-08 00:00: 00 Overview: Formattin g of this note might be different from the original. ICD10 Diagnosis Term Dispatcher Street Department Utility [facility] Depo-Prove ra contracept mari status Depo-Prove ra contracept mari status Disease Active 2012-08 00:00: 00 [facility] Family history of ovarian cancer Family history of ovarian cancer Disease Active 2012-08 00:00: 00 [facility] Normal delivery Normal delivery Disease Resolve d 2011-08 00:00: 00 2013-06-19 00:00:00 2013-06-19 15:39:46 [facility] Hypothyroi dism Hypothyroi dism Disease Resolve d 2011-08 00:00: 00 2013-06-19 00:00:00 2013-06-19 15:39:48 [facility] Other venous complicati on, with delivery, with or without mention of antepartum condition Other venous complicati on, with delivery, with or without mention of antepartum condition Disease Resolve d 2011-08 00:00: 00 2013-06-19 00:00:00 2013-06-19 15:39:51 [facility] Allergies, Adverse Reactions, Alerts Allergy Name Allergy Type Status Severity Reaction(s) Onset Date Inactive Date Treating Clinician Comments Source MORPHINE DRUG INGREDI Active SOB 2015-08 00:00: 00 [facility] Morphine Propensi ty to adverse reaction s Active Shortness of Breath 2015-08 00:00: 00 [facility] Social History Social Habit Start Date Stop Date Quantity Comments [facility] intake 2023-09-07 00:00:00 2023-09-07 00:00:00 0 /d [facility] History of Social function 2023-09-07 00:00:00 2023-09-07 00:00:00 [facility] Tobacco use and exposure 2012-05-28 00:00:00 2012-05-28 00:00:00 Smokeless tobacco non-user [facility] Sex assigned at 1990 00:00:00 1990 00:00:00 [facility] Smoking Status Start Date Stop Date Source Never smoked tobacco [facility] Medications Ordered Medication Name Filled Medication Name Start Date Stop Date Current Medication? Ordering Clinician Indication Dosage Frequency Signature (SIG) Comments Components Source HYDROcodone -acetaminop hen (NORCO) 10-325 mg tablet 1 tablet 04-15 02:00: 00 04-15 01:14 :00 No 1{tbl} 1 tablet, Oral, ONCE, 1 dose, On Wed04/14/24 at 2100, RIDGE [facility] ondansetron (ZOFRAN-ODT ) disintegrat ing tablet 4 mg 04-15 01:45: 00 04-15 01:14 :00 No 4mg 4 mg, Oral, ONCE, 1 dose, On Wed04/14/24 at 2045, RIDGE [facility] amoxicillin (TRIMOX) capsule 500 mg 04-15 01:00: 00 04-15 01:14 :00 No 500mg 500 mg, Oral, ONCE, 1 dose, On Wed04/14/24 at 2000, RIDGE, Reason for Anti-Infec tive: Documented Infection, Documented Infection Site: HEENT, Duration of Therapy: Once (ED) [facility] amoxicillin 500 mg capsule 04-14 00:00: 00 Yes [id number] 500mg Take 1 capsule by mouth in the morning and 1 capsule at noon and 1 capsule in the evening. [facility] ondansetron 4 mg disintegrat ing tablet 04-14 00:00: 00 Yes [id number] 4mg Take 1 tablet by mouth every 4 (four) hours as needed for Nausea and Vomiting (N/V). [facility] naproxen 500 mg tablet 04-14 00:00: 04-25 04:59 :00 Yes [id number] 500mg Take 1 tablet by mouth in the morning and 1 tablet in the evening. Take with meals. Do all this for 10 days. [facility] HYDROcodone -acetaminop hen 5-325 mg tablet 04-14 00:00: 00 04-22 04:59 :00 Yes [id number] 1{tbl} Take 1-2 tablets by mouth every 6 (six) hours as needed for Pain (scale 4-6) for up to 7 days. Indication s: acute pain [facility] ondansetron (ZOFRAN ODT) 4 mg disintegrat ing tablet 05-12 00:00: 00 04-14 00:00 :00 No 4mg Take 1 tablet by mouth every 8 (eight) hours as needed for Nausea and Vomiting (N/V). [facility] proMETHazin e 25 mg tablet 10-02 00:00: 00 Yes 25mg Take 1 tablet by mouth every 6 (six) hours as needed for Nausea and Vomiting (N/V). [facility] promethazin e 50 mg suppository 10-02 00:00: 00 Yes 50mg Insert 1 Suppositor y into rectum every 6 (six) hours as needed for Nausea and Vomiting (N/V). [facility] ondansetron (ZOFRAN ODT) 4 mg disintegrat ing tablet 10-02 00:00: 00 04-14 00:00 :00 No 8mg Take 2 tablets by mouth every 8 (eight) hours as needed for N/V alternatin g with Promethazi ne. [facility] proMETHazin e 25 mg tablet 09-21 00:00: 00 Yes 25mg Take 1 tablet by mouth every 6 (six) hours as needed for Nausea and Vomiting (N/V). [facility] Immunizations Ordered Immunization Name Filled Immunization Name Date Status Comments Source Rubella Unknown Completed [facility] TDAP Unknown Completed [facility] Vital Signs Vital Name Observation Time Observation Value Comments S our Systolic blood pressure 2024-04-15 01:13:00 134 mm[Hg] [facility] Diastolic blood pressure 2024-04-15 01:13:00 89 mm[Hg] [facility] Heart rate 2024-04-15 01:13:00 85 /min [facility] Body temperature 2024-04-15 01:13:[address] [facility] Respiratory rate 2024-04-15 01:13:00 16 /min [facility] Oxygen saturation in Arterial blood by Pulse oximetry 2024-04-15 01:13:00 99 /min [facility] Body height 2024-04-15 00:42:00 167.6 cm [facility] Body weight 2024-04-15 00:42:00 77.111 kg [facility] BMI 2024-04-15 00:42:00 27.44 kg/m2 [facility] Encounters Start Date/Time End Date/Time Encounter Type Admission Type Attending Clinicians Care Facility Care Department Encounter ID Source 2024-04-14 19:46:00 2024-04-14 20:29:00 Emergency X EVELIO CAIN [facility] ERT [id number] [facility] 2024-04-14 19:46:00 2024-04-14 20:29:00 Emergency [facility] [id number] [facility] Notes Date/Time Note Provider Source 2024-04-14 [...] ER noted upon discharge Nori Fisher RN [facility] 2024-04-14 19:41:19 Pt arrives ambulatory to ED c/o left side jaw pain and swelling that began overnight last night. She says she couldn't get into a dentist today so she came in here to get relief from the pain. Alycia Valverde RN [facility]
[2024-04-24 20:07] LABS: Absolute Basophils 0.1 K/uL (0-0.5); Absolute Lymphocytes (CBC) 1.2 K/uL (0.7-4.9); Absolute Monocytes 0.6 K/uL (0.1-1.3); Absolute Neutrophil 11.3 K/uL (1.8-8.0); Basophils % 0.5 % (0-1.3); Eosinophils % 0.2 % (0-4.4); Hematocrit 31.8 % (36.0-45.0); Hemoglobin 9.9 g/dL (12.0-15.0); MCH 22.5 pg (27.0-35.0); MCHC 31.2 g/dL (32.0-36.0); Monocytes % 4.7 % (3.3-12.3); Neutrophils % 85.6 % (41.7-73.7); Platelets 484 thou/uL (152-406); RBC Red Blood Cell Count 4.41 M/uL (3.86-4.86); Red Cell Distribution Width 16.5 % (12.1-15.2)
[2024-04-24 20:14] LABS: Specific Gravity < 1.005 (1.005-1.030)
[2024-04-24 20:21] LABS: Specific Gravity < 1.005 (1.005-1.030); Sqamous Epithelial <5 /HPF (None Seen); Urine Bacteria None Seen /HPF (<20); Urine Bilirubin NEGATIVE (Negative); Urine Blood 1+ (Negative); Urine Clarity Extremely Turbid (Clear); Urine Color Dark-Yellow (Yellow); Urine Crystals Unidentified Few /HPF (None Seen); Urine Culture Reflex Order NOT NEEDED; Urine Glucose NEGATIVE (Negative); Urine Ketones NEGATIVE (Negative); Urine Microscopic Reflex YN ORDER UMIC; Urine Nitrite NEGATIVE (Negative); Urine Protein NEGATIVE (Negative); Urine RBC <5 /HPF (None Seen); Urine Urobilinogen Normal (Normal); Urine WBC <5 /HPF (<5)
[2024-04-24 20:54] LABS: Albumin 3.6 g/dL (3.4-5.0); Albumin/Globulin Ratio 0.8 (1.1-1.8); Anion Gap 11.7 mEq/L (5.0-15.0); Bilirubin Total 0.3 mg/dL (0.2-1.0); Globulin 4.4 g/dL (2.3-3.5); Potassium 3.7 mEq/L (3.5-5.1)
[2024-04-24] MEDS ORDERED: ONDANSETRON 4 MG/2 ML VIAL ONE (20:57)
[2024-04-24] MEDS ORDERED: KETOROLAC 30 MG/ML INJ ONE (20:57)
[2024-04-24] MEDS ORDERED: NA CHLORIDE 0.9% 1,000 ML ONE (20:57)
--- NOTE | 2024-04-24 21:36 | RAD REPORT ---
EXAM DESCRIPTION: CT - Abdomen Pelvis W Contrast - 04/24/2024 9:21 pm CLINICAL HISTORY: Abdominal pain COMPARISON: none. TECHNIQUE: Computed axial tomography of the abdomen pelvis was obtained. 100 cc Isovue-300 was admin istered intravenously. Oral contrast was not requested which limits evaluation of bowel and appendix All CT scans are performed using dose optimization technique as appropriate and may include automated exposure control or mA/KV adjustment according to patient size. FINDINGS: The liver, spleen, pancreas, adrenal and left kidney appear unremarkable Enhancement and thickening of the wall of the right renal pelvis and right ureter. Mild dilatation ri ght renal pelvis and right ureter. A calculus is not seen although evaluation is somewhat limited sec ondary to contrast administration. There is no evidence of diverticulitis. Normal appendix No adnexal mass Small hiatal hernia IMPRESSION: Enhancement and thickening of the wall of the right renal pelvis and right ureter may in dicate an ascending urinary tract infection
--- NOTE | 2024-04-24 22:08 | ER ---
Nurse's Notes [facility] [place], [place] Name: Treasure Cobian Age: 34 yrs Sex: Female : 1990 Arrival Date: 04/24/2024 Time: 18:28 Bed 19 Private MD: Diagnosis: Calculus of ureter Presentation: 04/24 19:05 Chief complaint: Patient states: Right flank pain that radiates to RLQ abdomen. Pt cm10 reports Nausea and urinary frequency. Pt reports this began a couple hours ago,. Coronavirus screen: Client denies travel out of the [place] in the last 14 days. At this time, the client does not indicate any symptoms associated with coronavirus-19. Ebola Screen: Patient denies travel to an Ebola-affected area in the 21 days before illness onset. No symptoms or risks identified at this time. Initial Sepsis Screen: Does the patient meet any 2 criteria? No. Patient's initial sepsis screen is negative. Does the patient have a suspected source of infection? No. Patient's initial sepsis screen is negative. Risk Assessment: Do you want to hurt yourself or someone else? Patient reports no desire to harm self or others. Onset of symptoms was April 24, 2024. 19:05 Method Of Arrival: Ambulatory cm10 19:05 Acuity: KAILEY 3 cm10 Triage Assessment: 19:08 General: Appears in no apparent distress. comfortable, Behavior is calm, cooperative. cm10 Neuro: No deficits noted. Level of Consciousness is awake, alert, obeys commands, Oriented to person, place, time, situation, Appropriate for age. Historical: - Allergies: 19:07 Morphine; cm10 19:08 Clindamycin; cm10 - PMHx: 19:07 Anxiety; cm10 - Immunization history:: Adult Immunizations up to date. - Infectious Disease History:: Denies. - Social history:: Smoking status: Patient denies any tobacco usage or history of. Screenin:[address] [facility] ED Fall Risk Assessment (Adult) History of falling in the last 3 months, hb including since admission No falls in past 3 months (0 pts) Confusion or Disorientation No (0 pts) Intoxicated or Sedated No (0 pts) Impaired Gait No (0 pts) Mobility Assist Device Used No (0 pt) Altered Elimination No (0 pt) Score/Fall Risk Level 0 - 2 = Low Risk Oriented to surroundings, Maintained a safe environment, Educated pt \T\ family on fall prevention, incl call for assistance when getting out of bed. Abuse screen: Denies threats or abuse. Denies injuries from another. Nutritional screening: No deficits noted. Tuberculosis screening: No symptoms or risk factors identified. Assessment: 21:04 General: Appears in no apparent distress. Behavior is calm, cooperative. Pain: Pain hb currently is 0 out of 10 on a pain scale. Neuro: Level of Consciousness is awake, alert, obeys commands, Oriented to person, place, time, situation. Cardiovascular: Patient's skin is warm and dry. Respiratory: Respiratory effort is even, unlabored, Respiratory pattern is regular, symmetrical. GI: No signs and/or symptoms were reported involving the gastrointestinal system. : No signs and/or symptoms were reported regarding the genitourinary system. EENT: No signs and/or symptoms were reported regarding the EENT system. Derm: Skin is pink, warm \T\ dry. Musculoskeletal: No signs and/or symptoms reported regarding the musculoskeletal system. 22:33 Reassessment: Patient appears in no apparent distress at this time. Patient and/or hb family updated on plan of care and expected duration. Pain level reassessed. Patient is alert, oriented x 3, equal unlabored respirations, skin warm/dry/pink. Patient denies pain at this time. Patient states feeling better. Patient states symptoms have improved. Vital Signs: 19:05 BP 134 / 85; Pulse 93; Resp 16; Temp 97.7(IR); Pulse Ox 99% on R/A; Weight 79.38 kg; cm10 Height 5 ft. 6 in. ; Pain 3/10; 22:00 BP 126 / 76; Pulse 77; Resp 16; Pulse Ox 99% on R/A; hb 19:05 Body Mass Index 28.25 (79.38 kg, 167.64 cm) cm10 19:05 Pain Scale: Adult cm10 ED Course: 18:30 Patient arrived in ED. im 18:33 Heath Zaragoza MD is Attending Physician. sp3 19:07 Triage completed. cm10 19:08 Arm band placed on Patient placed in waiting room. cm10 20:00 CBC with Diff Sent. vk 20:00 CMP Sent. vk 20:00 Lipase Sent. vk 20:00 Test, Urine Sent. vk 20:00 Urinalysis w/ reflexes Sent. vk 20:00 Initial lab(s) drawn, by me, sent to lab. Urine collected: clean catch specimen, clear. vk Inserted saline lock: 22 gauge in right antecubital area, using aseptic technique. Blood collected. Flushed with 10 mL NS. 20:03 Attending Physician role handed off by Heath Zaragoza MD ec2 20:03 John Noriega MD is Attending Physician. ec2 20:55 Lisa Browning RN is Primary Nurse. hb 21:23 CT Abd/Pelvis - IV Contrast Only In Process Unspecified. EDMS 22:34 Patient has correct armband on for positive identification. Provided Education on: hb follow up . 22:34 No provider procedures requiring assistance completed. IV discontinued, intact, hb bleeding controlled, No redness/swelling at site. Pressure dressing applied. Administered Medications: 21:03 Drug: NS 0.9% IV 1000 ml IV at 1 bolus Per protocol; 1000 mL bolus Route: IV; Rate: 1 hb bolus; Site: right antecubital; 22:33 Follow up: Response: No adverse reaction; IV Status: Completed infusion; IV Intake: hb 1000ml 21:03 Drug: Ondansetron IVP 4 mg IVP once; over 2 minutes Route: IVP; Site: right antecubital;hb 22:33 Follow up: Response: No adverse reaction hb 21:04 Drug: TORadol - Ketorolac IVP 15 mg IVP once Route: IVP; Site: right antecubital; hb 22:33 Follow up: Response: No adverse reaction hb Medication: 22:30 VIS not applicable for this client. hb Intake: 22:33 IV: 1000ml; Total: 1000ml. hb Outcome: 22:07 Discharge ordered by . ec2 22:34 Discharged to home ambulatory, with significant other, hb 22:34 Condition: stable 22:34 Discharge instructions given to patient, Instructed on discharge instructions, follow up and referral plans. medication usage, Demonstrated understanding of instructions, follow-up care, medications, 22:34 Patient left the ED. hb Signatures: Dispatcher [employer] EDIL Lisa Browning RN RN Heath Zaragoza MD MD sp3 Anastasiya Cherry Clarissa, RN RN cm10 John Noriega MD MD ec2 Kera Dennison Corrections: (The following items were deleted from the chart) 19:08 19:07 Allergies: Rocephin; cm10 cm10
--- NOTE | 2024-04-24 22:08 | EDPHYS ---
Physician Documentation [facility] Name: Treasure Cobian Age: 34 yrs Sex: Female : 1990 Arrival Date: 04/24/2024 Time: 18:28 Bed 19 Private MD: ED Physician John Noriega HPI: 04/24 19:17 This 34 yrs old Female presents to ER via Ambulatory with complaints of Abdominal Pain, sp3 Low Back Pain. 19:17 34-year-old female with no significant past medical history presents to the ED with sp3 chief complaint right lower quadrant pain and right flank pain for the last 12 hours. Patient states that is hard to get into a comfortable position. She denies any injury, fever, potential bad food, nausea, vomiting, diarrhea, dysuria, [employer] symptoms, or any other signs or symptoms on ROS at this time.. Historical: - Allergies: 19:07 Morphine; cm10 19:08 Clindamycin; cm10 - PMHx: 19:07 Anxiety; cm10 - Immunization history:: Adult Immunizations up to date. - Infectious Disease History:: Denies. - Social history:: Smoking status: Patient denies any tobacco usage or history of. ROS: 19:18 Constitutional: Negative for fever, chills, and weight loss, Eyes: Negative for injury, sp3 pain, redness, and discharge, ENT: Negative for injury, pain, and discharge, Neck: Negative for injury, pain, and swelling, Cardiovascular: Negative for chest pain, palpitations, and edema, Respiratory: Negative for shortness of breath, cough, wheezing, and pleuritic chest pain, : Negative for injury, bleeding, discharge, and swelling, MS/Extremity: Negative for injury and deformity, Skin: Negative for injury, rash, and discoloration, Neuro: Negative for headache, weakness, numbness, tingling, and seizure, Psych: Negative for depression, anxiety, suicide ideation, homicidal ideation, and hallucinations, Allergy/Immunology: Negative for hives, rash, and allergies, Endocrine: Negative for neck swelling, polydipsia, polyuria, polyphagia, and marked weight changes, Hematologic/Lymphatic: Negative for swollen nodes, abnormal bleeding, and unusual bruising, 19:18 All other systems are negative, Exam: 19:18 Constitutional: This is a well developed, well nourished patient who is awake, alert, sp3 and in no acute distress. Head/Face: Normocephalic, atraumatic. Eyes: Pupils equal round and reactive to light, extra-ocular motions intact. Lids and lashes normal. Conjunctiva and sclera are non-icteric and not injected. Cornea within normal limits. Periorbital areas with no swelling, redness, or edema. Neck: Trachea midline, no thyromegaly or masses palpated, and no cervical lymphadenopathy. Supple, full range of motion without nuchal rigidity, or vertebral point tenderness. No Meningismus. Chest/axilla: Normal chest wall appearance and motion. Nontender with no deformity. No lesions are appreciated. Cardiovascular: Regular rate and rhythm with a normal S1 and S2. No gallops, murmurs, or rubs. Normal PMI, no JVD. No pulse deficits. Respiratory: Lungs have equal breath sounds bilaterally, clear to auscultation and percussion. No rales, rhonchi or wheezes noted. No increased work of breathing, no retractions or nasal flaring. Skin: Warm, dry with normal turgor. Normal color with no rashes, no lesions, and no evidence of cellulitis. MS/ Extremity: Pulses equal, no cyanosis. Neurovascular intact. Full, normal range of motion. Neuro: Awake and alert, GCS 15, oriented to person, place, time, and situation. Cranial nerves II-XII grossly intact. Motor strength 5/5 in all extremities. Sensory grossly intact. Cerebellar exam normal. Normal gait. Psych: Awake, alert, with orientation to person, place and time. Behavior, mood, and affect are within normal limits. 19:18 Abdomen/GI: Right lower quadrant pain without peritoneal signs. Right flank pain and CVA tenderness noted., Vital Signs: 19:05 BP 134 / 85; Pulse 93; Resp 16; Temp 97.7(IR); Pulse Ox 99% on R/A; Weight 79.38 kg; cm10 Height 5 ft. 6 in. ; Pain 3/10; 22:00 BP 126 / 76; Pulse 77; Resp 16; Pulse Ox 99% on R/A; hb 19:05 Body Mass Index 28.25 (79.38 kg, 167.64 cm) cm10 19:05 Pain Scale: Adult cm10 MDM: 18:41 Patient medically screened. sp3 19:18 Data reviewed: vital signs, nurses notes, lab test result(s), radiologic studies. ED sp3 course: 34-year-old female with right lower quadrant and right flank pain. Differential diagnosis includes UTI/pyelonephritis spectrum, ureterolithiasis/kidney stone spectrum, appendicitis, colitis, functional abdominal pain, musculoskeletal pain, among others. Workup will include CT scan of the abdomen pelvis with IV contrast, laboratory values, UA and general supportive care IV fluids and ketorolac. During her wait in the waiting room, patient did pass a kidney stone which she has in her possession. Workup still indicated given there may be second stone, hydronephrosis or other abnormalities. Patient will be signed out to night physician for final reevaluation and disposition.. 20:03 ED course: Patient signed out to me by previous physician, in brief arrives today for ec2 right-sided abdominal pain. Plan is to follow-up lab work and imaging.. 21:06 ED course: CBC shows slight leukocytosis, slight anemia noted, metabolic profile shows ec2 appropriate electrolytes and renal function. Urine testing is negative. Urine shows blood otherwise noninfectious, lipase within normal ranges. Pending CT imaging. . 21:58 ED course: CT imaging shows has been in the right renal pelvis and right ureter, ec2 patient had recently passed a stone. Doubt infection, urine is noninfectious appearing. Will discharge home. Return precautions given. . 04/24 19:07 Order name: CBC with Diff; Complete Time: 21:05 sp3 04/24 19:07 Order name: CMP; Complete Time: 21:05 sp3 04/24 19:07 Order name: Lipase; Complete Time: 21:05 sp3 04/24 19:07 Order name: Test, Urine; Complete Time: 21:05 sp3 04/24 19:07 Order name: Urinalysis w/ reflexes; Complete Time: 21:05 sp3 04/24 19:07 Order name: CT Abd/Pelvis - IV Contrast Only; Complete Time: 21:56 sp3 04/24 19:07 Order name: IV Saline Lock; Complete Time: 20:00 sp3 04/24 19:07 Order name: Labs collected and sent; Complete Time: 20:00 sp3 04/24 22:28 Order name: Misc. Order: d/c fluids and d/c patient ; Complete Time: 22:33 ec2 Administered Medications: 21:03 Drug: NS 0.9% IV 1000 ml IV at 1 bolus Per protocol; 1000 mL bolus Route: IV; Rate: 1 hb bolus; Site: right antecubital; 22:33 Follow up: Response: No adverse reaction; IV Status: Completed infusion; IV Intake: hb 1000ml 21:03 Drug: Ondansetron IVP 4 mg IVP once; over 2 minutes Route: IVP; Site: right antecubital;hb 22:33 Follow up: Response: No adverse reaction hb 21:04 Drug: TORadol - Ketorolac IVP 15 mg IVP once Route: IVP; Site: right antecubital; hb 22:33 Follow up: Response: No adverse reaction hb Disposition Summary: 04/24/24 22:07 Discharge Ordered Notes: Location: Home ec2 Condition: Stable ec2 Diagnosis - Calculus of ureter ec2 Followup: ec2 - With: Private Physician - When: - Reason: Recheck today's complaints Discharge Instructions: - Discharge Summary Sheet ec2 - Kidney Stones, [id number] ec2 Forms: - Medication Reconciliation Form ec2 - Antibiotic Education ec2 - Prescription Opioid Use ec2 - Patient Portal Instructions ec2 - Leadership Thank You Letter ec2 Signatures: Dispatcher [employer] Lisa Eller RN RN Heath Zaragoza MD MD sp3 Tasha Fisher RN RN cm10 John Noriega MD MD ec2 Corrections: (The following items were deleted from the chart) 19:08 19:07 Allergies: Rocephin; cm10 cm10
[2024-04-24 23:17] VITALS: BP 134/85; TEMP 97.7; O2SAT 99
== END 2024-04-24 22:34 | disposition home or self-care (01) ==
LOC: ER 18:28
DX: N20.1 Calculus of ureter (principal)
CPT/HCPCS: 96361; 85025; 81001; 36415; 81025; 83690; 80053; 74177; 96375; 96374; 99284; Q9967; J2405; J7030

== ENCOUNTER 2024-06-22 15:22 | Emergency (ER) | payer OTHER ==
--- OUTSIDE RECORDS SUMMARY | 2024-06-22 15:24 | XMS REPORT | Continuity of Care Document ---
Author Name Unknown Address [address] [place] [address] [facility]connect Address [address] [place] [address] Care Team Providers Care Compensation And Benefits Advisor Name Role Phone Pcp, Patient Does Not Have A Primary Care Physic sierra EVELIO CAIN Attending Clinician Unavailable EVELIO CAIN Attending Clinician Unavailable Evelio Cain MD Attending Clinician Payers Payer Name Policy Type Policy Number Effective Date Expirati on Date Source [employer] [id number] 2023 00:00:00 Problems Condition Name Condition Details Condition Category Status Onset Date Resolution Date Last Treatment Date Treating Clinician Comments Source Rubella immune Rubella immune Disease Active 2012-08 00:00: 00 [facility] Encounter for routine gynecologi nickolas examinatio n Encounter for routine gynecologi nickolas examinatio n Disease Active 2012-08 00:00: 00 Overview: Formattin g of this note might be different from the original. ICD10 Diagnosis Term Acid Strength Inspector Utility [facility] Depo-Prove ra contracept mari status Depo-Prove ra contracept mari status Disease Active 2012-08 00:00: 00 [facility] Family history of ovarian cancer Family history of ovarian cancer Disease Active 2012-08 00:00: 00 [facility] Normal delivery Normal delivery Disease Resolve d 2011-08 015 00:00: 00 2013-06-19 00:00:00 2013-06-19 15:39:46 [facility] Hypothyroi dism Hypothyroi dism Disease Resolve d 2011-08 00:00: 00 2013-06-19 00:00:00 2013-06-19 15:39:48 [facility] Other venous complicati on, with delivery, with or without mention of antepartum condition Other venous complicati on, with delivery, with or without mention of antepartum condition Disease Resolve d 2011-08 00:00: 00 2013-06-19 00:00:00 2013-06-19 15:39:51 [facility] Allergies, Adverse Reactions, Alerts Allergy Name Allergy Type Status Severity Reaction(s) Onset Date Inactive Date Treating Clinician Comments Source MORPHINE DRUG INGREDI Active SOB 2015-08 00:00: 00 [facility] Morphine Propensi ty to adverse reaction s Active Shortness of Breath 2015-08 00:00: 00 [facility] Social History Social Habit Start Date Stop Date Quantity Comments Source [facility] intake 2023-09-07 00:00:00 2023-09-07 00:00:00 0 /d [facility] History of Social function 2023-09-07 00:00:00 2023-09-07 00:00:00 [facility] Tobacco use and exposure 2012-05-28 00:00:00 2012-05-28 00:00:00 Smokeless tobacco non-user [facility] Sex assigned at 1990 00:00:00 1990 00:00:00 [facility] Smoking Status Start Date Stop Date Source Never smoked tobacco [facility] Medications Ordered Medication Name Filled Medication Name Start Date Stop Date Current Medication? Ordering Clinician Indication Dosage Frequency Signature (SIG) Comments Components Source HYDROcodone -acetaminop hen (NORCO) 10-325 mg tablet 1 tablet 04-15 02:00: 00 04-15 01:14 :00 No 1{tbl} 1 tablet, Oral, ONCE, 1 dose, On Wed04/14/24 at 2100, RIDGE [facility] ondansetron (ZOFRAN-ODT ) disintegrat ing tablet 4 mg 04-15 01:45: 00 04-15 01:14 :00 No 4mg 4 mg, Oral, ONCE, 1 dose, On Wed04/14/24 at 2045, RIDGE [facility] amoxicillin (TRIMOX) capsule 500 mg 04-15 01:00: 00 04-15 01:14 :00 No 500mg 500 mg, Oral, ONCE, 1 dose, On Wed04/14/24 at 2000, RIDGE, Reason for Anti-Infec tive: Documented Infection, Documented Infection Site: HEENT, Duration of Therapy: Once (ED) [facility] amoxicillin 500 mg capsule 04-14 00:00: 00 Yes [id number] 500mg Take 1 capsule by mouth in the morning and 1 capsule at noon and 1 capsule in the evening. [facility] ondansetron 4 mg disintegrat ing tablet 04-14 00:00: 00 Yes [id number] 4mg Take 1 tablet by mouth every 4 (four) hours as needed for Nausea and Vomiting (N/V). [facility] naproxen 500 mg tablet 04-14 00:00: 04-25 04:59 :00 Yes [id number] 500mg Take 1 tablet by mouth in the morning and 1 tablet in the evening. Take with meals. Do all this for 10 days. [facility] HYDROcodone -acetaminop hen 5-325 mg tablet 04-14 00:00: 00 04-22 04:59 :00 Yes [id number] 1{tbl} Take 1-2 tablets by mouth every 6 (six) hours as needed for Pain (scale 4-6) for up to 7 days. Indication s: acute pain [facility] ondansetron (ZOFRAN ODT) 4 mg disintegrat ing tablet - 00:00: 00 04-14 00:00 :00 No 4mg Take 1 tablet by mouth every 8 (eight) hours as needed for Nausea and Vomiting (N/V). [facility] proMETHazin e 25 mg tablet 10-02 00:00: 00 Yes 25mg Take 1 tablet by mouth every 6 (six) hours as needed for Nausea and Vomiting (N/V). [facility] promethazin e 50 mg suppository 10-02 00:00: 00 Yes 50mg Insert 1 Suppositor y into rectum every 6 (six) hours as needed for Nausea and Vomiting (N/V). [facility] ondansetron (ZOFRAN ODT) 4 mg disintegrat ing tablet 10-02 00:00: 00 04-14 00:00 :00 No 8mg Take 2 tablets by mouth every 8 (eight) hours as needed for N/V alternatin g with Promethazi ne. [facility] proMETHazin e 25 mg tablet 09-21 00:00: 00 Yes 25mg Take 1 tablet by mouth every 6 (six) hours as needed for Nausea and Vomiting (N/V). [facility] Immunizations Ordered Immunization Name Filled Immunization Name Date Status Comments Source Rubella Unknown Completed [facility] TDAP Unknown Completed [facility] Vital Signs Vital Name Observation Time Observation Value Comments S ource Systolic blood pressure 2024-04-15 01:13:00 134 mm[Hg] [facility] Diastolic blood pressure 2024-04-15 01:13:00 89 mm[Hg] [facility] Heart rate 2024-04-15 01:13:00 85 /min [facility] Body temperature 2024-04-15 01:13:[address] [facility] Respiratory rate 2024-04-15 01:13:00 16 /min [facility] Oxygen saturation in Arterial blood by Pulse oximetry 2024-04-15 01:13:00 99 /min [facility] Body height 2024-04-15 00:42:00 167.6 cm [facility] Body weight 2024-04-15 00:42:00 77.111 kg [facility] BMI 2024-04-15 00:42:00 27.44 kg/m2 [facility] Encounters Start Date/Time End Date/Time Encounter Type Admission Type Attending Clinicians Care Facility Care Department Encounter ID Source 2024-04-14 19:46:00 2024-04-14 20:29:00 Emergency X EVELIO CAIN CAIN EVELIO [facility] ERT [id number] [facility] 2024-04-14 19:46:00 2024-04-14 20:29:00 Emergency Evelio Cain [facility] [id number] [facility] Notes Date/Time Note Provider Source 2024-04-14 20:17:21 [...] ER noted upon discharge Nori Fisher RN [facility] 2024-04-14 19:41:19 Pt arrives ambulatory to ED c/o left side jaw pain and swelling that began overnight last night. She says she couldn't get into a dentist today so she came in here to get relief from the pain. Alycia Valverde RN [facility]
[2024-06-22] MEDS ORDERED: IBUPROFEN 400 MG TAB ONE (15:53)
[2024-06-22] MEDS ORDERED: NA CHLORIDE 0.9% 1,000 ML ONE (15:53)
[2024-06-22] MEDS ORDERED: ACETAMINOPHEN 325 MG TABLET ONE (15:53)
[2024-06-22 16:11] LABS: SARS-CoV-2 Antigen CONTROL BLUE LINE VIS/BG OK; SARS-CoV-2 Antigen Rapid Res Negative (Negative)
[2024-06-22 16:22] LABS: Absolute Lymphocytes (CBC) 0.4 K/uL (0.7-4.9); Absolute Monocytes 0.6 K/uL (0.1-1.3); Absolute Neutrophil 4.6 K/uL (1.8-8.0); Basophils % 0.7 % (0-1.3); Eosinophils % 0.3 % (0-4.4); Hematocrit 30.8 % (36.0-45.0); Hemoglobin 9.8 g/dL (12.0-15.0); Lymphocytes % 7.8 % (15.3-44.8); MCH 22.6 pg (27.0-35.0); MCHC 31.8 g/dL (32.0-36.0); MCV 71.1 fL (80-100); MPV 8.8 fL (7.6-11.3); Monocytes % 10.8 % (3.3-12.3); Neutrophils % 80.4 % (41.7-73.7); Nucleated Red Blood Cells % 0.1 % (0-0); Platelets 291 thou/uL (152-406); RBC Red Blood Cell Count 4.34 M/uL (3.86-4.86); Red Cell Distribution Width 16.8 % (12.1-15.2)
[2024-06-22 16:25] LABS: PT Prothrombin Time 13.4 SECONDS (9.4-12.5); PTT, Activated Partial Thromb 29.6 SECONDS (24.3-36.9); Protime INR 1.2
[2024-06-22 16:34] LABS: Albumin 3.6 g/dL (3.4-5.0); Albumin/Globulin Ratio 0.9 (1.1-1.8); Anion Gap 11.3 mEq/L (5.0-15.0); Bilirubin Total 0.3 mg/dL (0.2-1.0); Potassium 3.3 mEq/L (3.5-5.1); Protein, Total 7.6 g/dL (6.4-8.2)
[2024-06-22 16:37] LABS: Specific Gravity 1.028 (1.005-1.030); Urine Bacteria None Seen /HPF (<20); Urine Bilirubin NEGATIVE (Negative); Urine Blood 3+ (OVER) (Negative); Urine Clarity Extremely Turbid (Clear); Urine Color Dark-Brown (Yellow); Urine Crystals Unidentified Many /HPF (None Seen); Urine Culture Reflex Order REFLEXED; Urine Glucose NEGATIVE (Negative); Urine Ketones NEGATIVE (Negative); Urine Microscopic Reflex YN ORDER UMIC; Urine Nitrite NEGATIVE (Negative); Urine Protein 2+ (Negative); Urine RBC >50 /HPF (None Seen); Urine Urobilinogen Normal (Normal)
[2024-06-22 16:42] LABS: Specific Gravity 1.028 (1.005-1.030)
--- NOTE | 2024-06-22 17:00 | RAD REPORT ---
EXAMINATION: ONE VIEW CHEST XR CLINICAL INDICATION: Female, 34 years old.,Cough;Fever TECHNIQUE: Frontal chest projection is submitted. Examination is limited by patient positioning and t echnique. COMPARISON: 11/25/2017 FINDINGS: The lungs are well inflated and clear. No pneumothorax or sizable effusion. The heart is normal in s ize. Mediastinal contours are unremarkable. IMPRESSION: No acute intrathoracic abnormalities.
--- NOTE | 2024-06-22 17:05 | ER ---
Nurse's Notes [facility] Name: Treasure Cobian Age: 34 yrs Sex: Female : 1990 Arrival Date: 06/22/2024 Time: 15:22 Bed 2 Private MD: Diagnosis: Influenza due to other identified influenza virus with other respiratory manifestations Presentation: 06/22 15:33 Chief complaint: Patient states: SOB, cough, fever, body aches, N/V/D for 5 days. ll1 Coronavirus screen: Client denies travel out of the [place] in the last 14 days. congestion, cough unrelated to allergies, fatigue, fever, headache. Ebola Screen: Patient denies travel to an Ebola-affected area in the 21 days before illness onset. Initial Sepsis Screen: Does the patient meet any 2 criteria? Temp <36.0*C (96.8*F)) or > 38.3*C (100.9*F). HR > 90 bpm. Does the patient have a suspected source of infection? No. Patient's initial sepsis screen is negative. Risk Assessment: Do you want to hurt yourself or someone else? Patient reports no desire to harm self or others. Onset of symptoms was June 17, 2024. 15:33 Method Of Arrival: Ambulatory 1 15:33 Acuity: KAILEY 2 ll1 Triage Assessment: 15:35 General: Appears uncomfortable, Behavior is calm, cooperative, appropriate for age. ll1 Pain: Complains of pain in throat. EENT: Reports nasal congestion pain when swallowing. Neuro: Reports headache weakness. Respiratory: Reports cough that is. GI: Reports diarrhea, nausea, vomiting. Historical: - Allergies: 15:32 Clindamycin; ll1 15:32 Morphine; ll1 - PMHx: 15:32 Anxiety; ll1 - PSHx: 15:32 None; ll1 - Immunization history:: Adult Immunizations up to date. - Infectious Disease History:: Denies. - Social history:: Smoking status: Patient denies any tobacco usage or history of. - Family history:: not pertinent. - Hospitalizations: : No recent hospitalization is reported. Screenin:[address] [facility] ED Fall Risk Assessment (Adult) History of falling in the last 3 months, iw including since admission No falls in past 3 months (0 pts) Confusion or Disorientation No (0 pts) Intoxicated or Sedated No (0 pts) Impaired Gait No (0 pts) Mobility Assist Device Used No (0 pt) Altered Elimination No (0 pt) Score/Fall Risk Level 0 - 2 = Low Risk Oriented to surroundings, Maintained a safe environment. Abuse screen: Denies injuries from another. Nutritional screening: No deficits noted. Tuberculosis screening: No symptoms or risk factors identified. Assessment: 16:11 General: Appears in no apparent distress. comfortable, Behavior is calm, cooperative. iw General: Reports fever for 2-3 days, feeling ill for. Pain:. Neuro: Level of Consciousness is awake, alert, obeys commands, Oriented to person, place, time, situation, Moves all extremities. Full function. Cardiovascular: Patient's skin is warm and dry. Respiratory: Reports shortness of breath cough that is Respiratory effort is even, unlabored, Respiratory pattern is regular, symmetrical. GI: Reports diarrhea, nausea, vomiting. Derm: Skin is intact, is healthy with good turgor. Musculoskeletal: Range of motion: intact in all extremities. Vital Signs: 15:33 BP 157 / 94; Pulse 136; Resp 18; Temp 103.3; Pulse Ox 99% ; Weight 81.65 kg; Height 5 ll1 ft. 5 in. ; Pain 10/10; 16:12 BP 135 / 90; Pulse 117; Resp 19; Pulse Ox 98% on R/A; iw 17:21 BP 128 / 89; Pulse 105; Resp 18 S; Temp 100(O); Pulse Ox 100% on R/A; iw 15:33 Body Mass Index 29.95 (81.65 kg, 165.1 cm) ll1 15:33 Pain Scale: Adult ll1 ED Course: 15:23 Patient arrived in ED. mr 15:27 Compa Hernandez MD is Attending Physician. rn 15:34 Triage completed. ll1 15:36 Arm band placed on Patient placed in an exam room, on a stretcher. ll1 15:49 First set of blood cultures drawn by oh. mb9 16:05 Second set of blood cultures drawn by oh. melba 16:10 Betty Valverde, RN is Primary Nurse. iw 16:12 Initial lab(s) drawn, by oh, sent to lab. EKG done, by ED staff, reviewed by Compa Hernandez MD. Inserted saline lock: 20 gauge in left forearm, using aseptic technique. Blood collected. Flushed with 10 mL NS. 16:15 Placed in gown. Bed in low position. Call light in reach. Side rails up X 1. Provided mb9 Education on: press call light if needing anything. Client placed on continuous cardiac and pulse oximetry monitoring. NIBP monitoring applied. 16:56 Chest Single View XRAY In Process Unspecified. EDMS 17:22 No provider procedures requiring assistance completed. IV discontinued, intact, iw bleeding controlled, No redness/swelling at site. Pressure dressing applied. Administered Medications: 16:03 Drug: Ibuprofen PO 800 mg PO once Route: PO; me1 16:03 Drug: Acetaminophen PO 650 mg PO once Route: PO; me1 16:12 Drug: NS 0.9% IV 1000 ml IV at 1000 ml once; to be given as a bolus over 60 minutes mb9 Route: IV; Rate: 1000 ml; Site: left forearm; 17:15 Follow up: IV Status: Completed infusion iw Medication: 16:15 VIS not applicable for this client. mb9 Outcome: 17:04 Discharge ordered by . rn 17:21 Discharged to home ambulatory, iw 17:21 Condition: good 17:21 Discharge instructions given to patient, Instructed on discharge instructions, follow up and referral plans. Demonstrated understanding of instructions, follow-up care, 17:22 Patient left the ED. iw Signatures: Dispatcher [employer] Carissa Jackson, Reg Reg Betty Valverde, RN RN iw Compa Hernandez MD MD rn Lewis, Lynsay, RN RN ll1 Carissa Powers, RN RN mb9 Marnie Vigil RN RN me1
--- NOTE | 2024-06-22 17:05 | EDPHYS ---
Physician Documentation [facility] Name: Treasure Cobian Age: 34 yrs Sex: Female : 1990 Arrival Date: 06/22/2024 Time: 15:22 Bed 2 Private MD: ED Physician Compa Hernandez HPI: 06/22 15:40 This 34 yrs old Female presents to ER via Ambulatory with complaints of Cough, Fever. rn 15:40 The patient or guardian reports cough, described as moderate. Onset: The rn symptoms/episode began/occurred 5 day(s) ago. Severity of symptoms: At their worst the symptoms were moderate, in the emergency department the symptoms are unchanged. Modifying factors: The symptoms are alleviated by nothing, the symptoms are aggravated by nothing. Associated signs and symptoms: Pertinent positives: fever, Pertinent negatives: diarrhea, rhinorrhea. The patient has not experienced similar symptoms in the past. Patient reports 5 days of fever and cough and now with shortness of breath that began today. No chronic lung problems. Does not smoke or vape. No trauma. No known sick contacts. Denies congestion. No hemoptysis. No history of DVT or PE. No recent surgery.. Historical: - Allergies: 15:32 Clindamycin; ll1 15:32 Morphine; ll1 - PMHx: 15:32 Anxiety; ll1 - PSHx: 15:32 None; ll1 - Immunization history:: Adult Immunizations up to date. - Infectious Disease History:: Denies. - Social history:: Smoking status: Patient denies any tobacco usage or history of. - Family history:: not pertinent. - Hospitalizations: : No recent hospitalization is reported. ROS: 15:40 Constitutional: Positive for fever and chills Cardiovascular: Negative for chest pain, rn palpitations, and edema, Respiratory: Positive for cough and shortness of breath Abdomen/GI: Negative for abdominal pain, diarrhea, and constipation, MS/Extremity: Negative for injury and deformity, Skin: Negative for injury, rash, and discoloration, Neuro: Positive for generalized weakness Exam: 15:40 Constitutional: This is a well developed, well nourished patient who is awake, alert, rn and in no acute distress. Head/Face: Normocephalic, atraumatic. ENT: Dry mucous membranes, no stridor Cardiovascular: Tachycardic, regular Respiratory: Mild tachypnea, diminished breath sounds at bases. No retractions MS/ Extremity: Pulses equal, no cyanosis. Neuro: Awake and alert, GCS 15 16:12 ECG was reviewed by the Attending Physician. rn Vital Signs: 15:33 BP 157 / 94; Pulse 136; Resp 18; Temp 103.3; Pulse Ox 99% ; Weight 81.65 kg; Height 5 ll1 ft. 5 in. ; Pain 10/10; 16:12 BP 135 / 90; Pulse 117; Resp 19; Pulse Ox 98% on R/A; iw 17:21 BP 128 / 89; Pulse 105; Resp 18 S; Temp 100(O); Pulse Ox 100% on R/A; iw 15:33 Body Mass Index 29.95 (81.65 kg, 165.1 cm) ll1 15:33 Pain Scale: Adult ll1 MDM: 15:27 Medical Screening Exam initiated rn 17:03 Differential Diagnosis: Bronchitis Influenza Upper Respiratory Infection Viral Syndrome rn Pneumonia. 17:03 Data reviewed: vital signs, nurses notes, lab test result(s), radiologic studies, plain rn films, and as a result, I will discharge patient. Counseling: I had a detailed discussion with the patient and/or guardian regarding the historical points, exam findings, and any diagnostic results supporting the discharge/admit diagnosis, lab results, radiology results, the need for outpatient follow up, to return to the emergency department if symptoms worsen or persist or if there are any questions or concerns that arise at home. Special discussion: I discussed with the patient/guardian in detail that at this point there is no indication for admission to the hospital. It is understood, however, that if the symptoms persist or worsen the patient needs to return immediately for re-evaluation. ED course: Chest x-ray clear, images negative for pneumonia or pneumothorax per my interpretation. No oxygen requirement. Flu be positive. Sick for 5 days so too late for Tamiflu. No indication for antibiotics. Will discharge with return precautions.. 06/22 15:37 Order name: Blood Culture Adult (2) rn 06/22 15:37 Order name: CBC with Diff; Complete Time: 16:29 rn 06/22 15:37 Order name: CMP; Complete Time: 16:55 rn 06/22 15:37 Order name: Lactate w/ 2H reflex if indic.; Complete Time: 16:55 rn 06/22 15:37 Order name: Protime (+inr); Complete Time: 16:29 rn 06/22 15:37 Order name: Ptt, Activated; Complete Time: 16:29 rn 06/22 15:37 Order name: Flu; Complete Time: 16:29 rn 06/22 15:37 Order name: SARS RAPID; Complete Time: 16:29 rn 06/22 15:39 Order name: Test, Urine; Complete Time: 16:55 rn 06/22 15:39 Order name: Urinalysis w/ reflexes; Complete Time: 16:55 rn 06/22 16:40 Order name: Urine Culture EDFL 06/22 15:37 Order name: Chest Single View XRAY; Complete Time: 17:03 rn 06/22 15:37 Order name: Accucheck; Complete Time: 16:12 rn 06/22 15:37 Order name: Cardiac monitoring; Complete Time: 16:12 rn 06/22 15:37 Order name: EKG - Nurse/Tech; Complete Time: 16:12 rn 06/22 15:37 Order name: IV Saline Lock - Large Bore; Complete Time: 16:12 rn 06/22 15:37 Order name: Labs collected and sent; Complete Time: 16:12 rn 06/22 15:37 Order name: O2 Per Protocol; Complete Time: 16:12 rn 06/22 15:37 Order name: O2 Sat Monitoring; Complete Time: 16:12 rn 06/22 15:37 Order name: Vital Signs; Complete Time: 16:12 rn EC:12 Rate is 119 beats/min. Rhythm is regular. Left axis deviation noted. QRS is positive in rn lead I and negative in lead aVF. IN interval is normal. QRS interval is normal. QT interval is normal. No Q waves. T waves are Normal. No ST changes noted. Clinical impression: Sinus tachycardia. Interpreted by me. Reviewed by me. Administered Medications: 16:03 Drug: Ibuprofen PO 800 mg PO once Route: PO; me1 16:03 Drug: Acetaminophen PO 650 mg PO once Route: PO; me1 16:12 Drug: NS 0.9% IV 1000 ml IV at 1000 ml once; to be given as a bolus over 60 minutes mb9 Route: IV; Rate: 1000 ml; Site: left forearm; 17:15 Follow up: IV Status: Completed infusion iw Disposition Summary: 06/22/24 17:04 Discharge Ordered Notes: Location: Home rn Problem: new rn Symptoms: have improved rn Condition: Stable rn Diagnosis - Influenza due to other identified influenza virus with other respiratory rn manifestations Followup: rn - With: Private Physician - When: As needed - Reason: Recheck today's complaints, Re-evaluation by your physician Discharge Instructions: - Discharge Summary Sheet rn - Influenza, Adult rn Forms: - Medication Reconciliation Form rn - Antibiotic 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 EDMS EDMS 15:38 15:38 CBC+H.LAB.BRZ ordered. EDMS EDMS 15:38 15:38 COMPREHENSIVE METABOLIC PANEL+C.LAB.BRZ ordered. EDMS EDMS 15:39 15:38 LACTATE+C.LAB.BRZ ordered. EDMS EDMS 15:39 15:38 PROTIME (+INR)+COAG.LAB.BRZ ordered. EDMS EDMS 15:39 15:38 PTT, ACTIVATED+COAG.LAB.BRZ ordered. EDMS EDMS 15:39 15:38 Influenza Screen (A \T\ B)+BA.LAB.BRZ ordered. EDMS EDMS 15:39 15:38 SARS-COV-2 Antigen Rapid+I.LAB.BRZ ordered. EDMS EDMS 15:39 15:39 Chest Single View+RAD.RAD.BRZ ordered. EDMS EDMS
[2024-06-22 17:42] VITALS: BP 128/89; TEMP 100; O2SAT 100
--- NOTE | 2024-06-23 15:09 | EKG ---
Test Date: 2024-06-22 Test Time: 15:55:37 User Interface Developer: MB MEASUREMENT RESULTS: Intervals: Rate: 115 NH: 128 QRSD: 86 QT: 298 QTc: 412 [place]: P: NH: 128 QRS: 258 T: 147 INTERPRETIVE STATEMENTS: Suspect arm lead reversal, interpretation assumes no reversal Sinus tachycardia Lateral infarct, age undetermined T wave abnormality, consider inferior ischemia Abnormal ECG No previous ECG available for comparison Electronically Signed On 06-23-24 15:07:08 CAR CLERK PULLMAN by Edson Atwood
== END 2024-06-22 17:22 | disposition home or self-care (01) ==
LOC: ER 15:22
DX: J11.1 Influenza due to unidentified influenza virus with other respiratory manifestations (principal); Z11.52 Encounter for screening for COVID-19
CPT/HCPCS: 93005; 87040 ×2; 87088; 85025; 81001; 87086; 36415; 81025; 85610; 83605; 85730; 80053; 87804 ×2; 71045; 96360; 99284; 87811; J7030

== ENCOUNTER 2024-06-27 10:55 | Emergency (ER) | payer OTHER ==
--- OUTSIDE RECORDS SUMMARY | 2024-06-27 10:58 | XMS REPORT | Continuity of Care Document ---
Author Name Unknown Address [address] [place] [address] [facility] thconnect Address [address] [place] [address] Care Team Providers Care Customer Experience Specialist Name Role Phone Pcp, Patient Does Not Have A Primary Care Physic sierra EVELIO CAIN Attending Clinician Unavailable EVELIO CAIN Attending Clinician Unavailable Evelio Cain MD Attending Clinician [phone] Payers Payer Name Policy Type Policy Number Effective Date Expirati on Date Source [employer] [id number] 2023 00:00:00 Problems Condition Name Condition Details Condition Category Status Onset Date Resolution Date Last Treatment Date Treating Clinician Comments Source Rubella immune Rubella immune Disease Active 2012-08 00:00: 00 [facility] Encounter for routine gynecologi nickolas examinatio n Encounter for routine gynecologi nickolas examinatio n Disease Active 2012-08 00:00: 00 Overview: Formattin g of this note might be different from the original. 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 [facility] Depo-Prove ra contracept mari status Depo-Prove ra contracept mari status Disease Active 2012-08 00:00: 00 [facility] Family history of ovarian cancer Family history of ovarian cancer Disease Active 2012-08 00:00: 00 [facility] Normal delivery Normal delivery Disease Resolve d 2011-08 015 00:00: 00 2013-06-19 00:00:00 2013-06-19 15:39:46 [facility] Hypothyroi dism Hypothyroi dism Disease Resolve d 2011-08 00:00: 00 2013-06-19 00:00:00 2013-06-19 15:39:48 [facility] Other venous complicati on, with delivery, with or without mention of antepartum condition Other venous complicati on, with delivery, with or without mention of antepartum condition Disease Resolve d 2011-08 00:00: 00 2013-06-19 00:00:00 2013-06-19 15:39:51 [facility] Allergies, Adverse Reactions, Alerts Allergy Name Allergy Type Status Severity Reaction(s) Onset Date Inactive Date Treating Clinician Comments Source MORPHINE DRUG INGREDI Active SOB 2015-08 00:00: 00 [facility] Morphine Propensi ty to adverse reaction s Active Shortness of Breath 2015-08 00:00: 00 [facility] Social History Social Habit Start Date Stop Date Quantity Comments [facility] intake 2023-09-07 00:00:00 2023-09-07 00:00:00 0 /d [facility] History of Social function 2023-09-07 00:00:00 2023-09-07 00:00:00 [facility] Tobacco use and exposure 2012-05-28 00:00:00 2012-05-28 00:00:00 Smokeless tobacco non-user [facility] Sex assigned at 1990 00:00:00 1990 00:00:00 [facility] Smoking Status Start Date Stop Date Source Never smoked tobacco [facility] Medications Ordered Medication Name Filled Medication Name Start Date Stop Date Current Medication? Ordering Clinician Indication Dosage Frequency Signature (SIG) Comments Components Source HYDROcodone -acetaminop hen (NORCO) 10-325 mg tablet 1 tablet 04-15 02:00: 00 04-15 01:14 :00 No 1{tbl} 1 tablet, Oral, ONCE, 1 dose, On Wed04/14/24 at 2100, RIDGE [facility] ondansetron (ZOFRAN-ODT ) disintegrat ing tablet 4 mg 04-15 01:45: 00 04-15 01:14 :00 No 4mg 4 mg, Oral, ONCE, 1 dose, On Wed04/14/24 at 2045, RIDGE [facility] amoxicillin (TRIMOX) capsule 500 mg 04-15 01:00: 00 04-15 01:14 :00 No 500mg 500 mg, Oral, ONCE, 1 dose, On Wed04/14/24 at 2000, RIDGE, Reason for Anti-Infec tive: Documented Infection, Documented Infection Site: HEENT, Duration of Therapy: Once (ED) [facility] amoxicillin 500 mg capsule 04-14 00:00: 00 Yes [id number] 500mg Take 1 capsule by mouth in the morning and 1 capsule at noon and 1 capsule in the evening. [facility] ondansetron 4 mg disintegrat ing tablet 04-14 00:00: 00 Yes [id number] 4mg Take 1 tablet by mouth every 4 (four) hours as needed for Nausea and Vomiting (N/V). [facility] naproxen 500 mg tablet 04-14 00:00: 04-25 04:59 :00 Yes [id number] 500mg Take 1 tablet by mouth in the morning and 1 tablet in the evening. Take with meals. Do all this for 10 days. [facility] HYDROcodone -acetaminop hen 5-325 mg tablet 04-14 00:00: 00 04-22 04:59 :00 Yes [id number] 1{tbl} Take 1-2 tablets by mouth every 6 (six) hours as needed for Pain (scale 4-6) for up to 7 days. Indication s: acute pain [facility] ondansetron (ZOFRAN ODT) 4 mg disintegrat ing tablet - 00:00: 00 04-14 00:00 :00 No 4mg Take 1 tablet by mouth every 8 (eight) hours as needed for Nausea and Vomiting (N/V). [facility] proMETHazin e 25 mg tablet 10-02 00:00: 00 Yes 25mg Take 1 tablet by mouth every 6 (six) hours as needed for Nausea and Vomiting (N/V). [facility] promethazin e 50 mg suppository 10-02 00:00: 00 Yes 50mg Insert 1 Suppositor y into rectum every 6 (six) hours as needed for Nausea and Vomiting (N/V). [facility] ondansetron (ZOFRAN ODT) 4 mg disintegrat ing tablet 10-02 00:00: 00 04-14 00:00 :00 No 8mg Take 2 tablets by mouth every 8 (eight) hours as needed for N/V alternatin g with Promethazi ne. [facility] proMETHazin e 25 mg tablet 09-21 00:00: 00 Yes 25mg Take 1 tablet by mouth every 6 (six) hours as needed for Nausea and Vomiting (N/V). [facility] Immunizations Ordered Immunization Name Filled Immunization Name Date Status Comments Source Rubella Unknown Completed [facility] TDAP Unknown Completed [facility] Vital Signs Vital Name Observation Time Observation Value Comments S ource Systolic blood pressure 2024-04-15 01:13:00 134 mm[Hg] [facility] Diastolic blood pressure 2024-04-15 01:13:00 89 mm[Hg] [facility] Heart rate 2024-04-15 01:13:00 85 /min [facility] Body temperature 2024-04-15 01:13:[address] [facility] Respiratory rate 2024-04-15 01:13:00 16 /min [facility] Oxygen saturation in Arterial blood by Pulse oximetry 2024-04-15 01:13:00 99 /min [facility] Body height 2024-04-15 00:42:00 167.6 cm [facility] Body weight 2024-04-15 00:42:00 77.111 kg [facility] BMI 2024-04-15 00:42:00 27.44 kg/m2 [facility] Encounters Start Date/Time End Date/Time Encounter Type Admission Type Attending Clinicians Care Facility Care Department Encounter ID Source 2024-04-14 19:46:00 2024-04-14 20:29:00 Emergency X EVELIO CAIN CAIN EVELIO [facility] ERT [id number] [facility] 2024-04-14 19:46:00 2024-04-14 20:29:00 Emergency Evelio Cain [facility] [id number] [facility] Notes Date/Time Note Provider Source [...] ER noted upon discharge Nori Fisher RN [facility] 2024-04-14 19:41:19 Pt arrives ambulatory to ED c/o left side jaw pain and swelling that began overnight last night. She says she couldn't get into a dentist today so she came in here to get relief from the pain. Alycia Valverde RN [facility]
[2024-06-27] MEDS ORDERED: ALBUTEROL 2.5 MG/3 ML NEB SOL ONE (11:20)
[2024-06-27] MEDS ORDERED: IPRATROPIUM BROM 0.5MG/2.5ML ONE (11:20)
[2024-06-27] MEDS ORDERED: BENZONATATE 100 MG CAP PO ONE (11:21)
[2024-06-27] MEDS ORDERED: ONDANSETRON 4 MG (ODT) TAB ONE (11:21)
[2024-06-27] MEDS ORDERED: guaiFENesin 100 MG/5 ML UCUP ONE (11:21)
[2024-06-27] MEDS ORDERED: ACETAMINOPHEN 500 MG TAB ONE (11:21)
--- NOTE | 2024-06-27 12:33 | RAD REPORT ---
EXAM: Chest Single View HISTORY: COUGH COMPARISON: 06/22/2024 FINDINGS: LUNGS/PLEURA: Patchy left midlung and left basilar airspace disease which is new from prior. MEDIASTINUM: The mediastinal silhouette is within normal limits. CARDIAC: The cardiac silhouette is within normal limits. UPPER ABDOMEN: No significant abnormality. BONES: No acute fracture. LINES/TUBES/OTHER: N/A IMPRESSION: New ill-defined left midlung and left basilar airspace disease concerning for pneumonia.
--- NOTE | 2024-06-27 12:42 | EDPHYS ---
Physician Documentation [facility] Name: Treasure Cobian Age: 34 yrs Sex: Female : 1990 Arrival Date: 06/27/2024 Time: 10:55 Bed 11 Private MD: ED Physician John Noriega HPI: 06/27 11:13 This 34 yrs old Female presents to ER via Ambulatory with complaints of ec2 Cough, Vomiting. 11:13 Patient with recent diagnosis of influenza arrives today for persistent cough and ec2 posttussive emesis. Patient reports some nausea and decreased p.o. intake as well as fatigue. No diarrhea. Reports that she has no significant medical problems, has not a smoker.. Historical: - Allergies: 11:00 Clindamycin; ll1 11:00 Morphine; ll1 - PMHx: 11:00 Anxiety; ll1 - Immunization history:: Adult Immunizations up to date. - Infectious Disease History:: Denies. - Social history:: Smoking status: Patient denies any tobacco usage or history of. ROS: 11:13 Constitutional: as per hpi ec2 Exam: 11:13 Constitutional: GEN: NAD Head: atraumatic Eyes: EOMI Ears: External ears are ec2 normal. CV: regular rate LUNGS: no respiratory distress occasional wheeze noted ABD: non-distended SKIN: no evidence of rashes MSK: no evidence of trauma Vital Signs: 11:05 BP 133 / 91; Pulse 104; Resp 20; Temp 97.6; Pulse Ox 99% on R/A; Weight 81.65 kg; ll1 Height 5 ft. 5 in. ; Pain 8/10; 12:40 BP 127 / 84; Pulse 81; Resp 17; Pulse Ox 99% on R/A; rs5 11:05 Body Mass Index 29.95 (81.65 kg, 165.1 cm) ll1 11:05 Pain Scale: Adult ll1 MDM: 11:08 Medical Screening Exam initiated ec2 11:13 Data reviewed: vital signs, nurses notes. ED course: Patient arrives today for ec2 persistent upper respiratory symptoms. Examination remarkable for well-appearing nontoxic individual who slightly tachycardic and otherwise in no acute respiratory distress. Will obtain chest x-ray, treat the patient's cough as well. Suspect patient's recent viral diagnosis or possible postviral pneumonia.. 12:40 ED course: Chest x-ray with concern for pneumonia. Will start the patient antibiotics ec2 and discharged home. Patient without any hypoxia or significant work of breathing.. 06/27 11:13 Order name: CXR XRAY; Complete Time: 12:40 ec2 Administered Medications: 11:28 Drug: Tessalon Perle PO 200 mg PO once Route: PO; rs5 12:10 Follow up: Response: No adverse reaction rs5 11:28 Drug: guaiFENesin PO Liquid 15 ml PO once Route: PO; rs5 12:20 Follow up: Response: No adverse reaction rs5 11:28 Drug: Acetaminophen PO 1000 mg PO once Route: PO; rs5 12:20 Follow up: Response: No adverse reaction rs5 11:28 Not Given (Patient Refused): Ondansetron Oral Disintegrating Tablet 4 mg PO once rs5 11:28 Drug: DuoNeb Nebulize (3:1) (2.5 mg - 0.5 mg) 3 ml Nebulizer once Route: Nebulizer; rs5 12:20 Follow up: Response: No adverse reaction rs5 12:42 Drug: Amoxicillin-Clavulanate PO 875 mg PO once Route: PO; rs5 Disposition Summary: 06/27/24 12:41 Discharge Ordered Notes: Location: Home ec2 Condition: Stable ec2 Diagnosis - Unspecified bacterial pneumonia ec2 Followup: ec2 - With: Private Physician - When: - Reason: Re-evaluation by your physician Discharge Instructions: - Discharge Summary Sheet ec2 - Community-Acquired Pneumonia, Adult ec2 Forms: - Medication Reconciliation Form ec2 - Antibiotic Education ec2 - Prescription Opioid Use ec2 - Patient Portal Instructions ec2 - Leadership Thank You Letter ec2 Prescriptions: - Augmentin 875-125 mg Oral Tablet - take 1 tablet ORAL route every 12 hours for 10 days; 20 tablet; Refills: 0, ec2 Product Selection Permitted - Tessalon Perles 100 mg Oral Capsule - take 1 capsule ORAL route every 8 hours As needed; 15 capsule; Refills: 0, ec2 Product Selection Permitted Signatures: Dispatcher [employer] Jerry Schofield RN RN ll1 Timmy Rivers RN RN rs5 John Noriega MD MD ec2
--- NOTE | 2024-06-27 12:42 | ER ---
Nurse's Notes [facility] Name: Treasure Cobian Age: 34 yrs Sex: Female : 1990 Arrival Date: 06/27/2024 Time: 10:55 Bed 11 Private MD: Diagnosis: Unspecified bacterial pneumonia Presentation: 06/27 11:05 Chief complaint: Patient states: Diagnosed with flu last visit. Cough is so severe now ll1 she vomits a lot. Coronavirus screen: Client denies travel out of the [place] in the last 14 days. congestion, cough unrelated to allergies, difficulty breathing, shortness of breath, Client presents with at least one sign or symptom that may indicate coronavirus-19. Standard/surgical mask placed on the client. Ebola Screen: Patient denies travel to an Ebola-affected area in the 21 days before illness onset. Initial Sepsis Screen: Does the patient meet any 2 criteria? No. Patient's initial sepsis screen is negative. Does the patient have a suspected source of infection? No. Patient's initial sepsis screen is negative. Risk Assessment: Do you want to hurt yourself or someone else? Patient reports no desire to harm self or others. Onset of symptoms was June 18, 2024. 11:05 Method Of Arrival: Ambulatory ll1 11:05 Acuity: KAILEY 3 ll1 Triage Assessment: 11:05 General: Appears distressed, uncomfortable, Behavior is calm, cooperative, appropriate ll1 for age. Pain: Complains of pain in ribs Pain currently is 3 out of 10 on a pain scale. Quality of pain is described as aching, Aggravated by cough. Neuro: Reports weakness. GI: Reports nausea, vomiting. Historical: - Allergies: 11:00 Clindamycin; ll1 11:00 Morphine; ll1 - PMHx: 11:00 Anxiety; ll1 - Immunization history:: Adult Immunizations up to date. - Infectious Disease History:: Denies. - Social history:: Smoking status: Patient denies any tobacco usage or history of. Screenin:05 [facility] ED Fall Risk Assessment (Adult) History of falling in the last 3 months, rs5 including since admission No falls in past 3 months (0 pts) Confusion or Disorientation No (0 pts) Intoxicated or Sedated No (0 pts) Impaired Gait No (0 pts) Mobility Assist Device Used No (0 pt) Altered Elimination No (0 pt) Score/Fall Risk Level 0 - 2 = Low Risk Oriented to surroundings, Maintained a safe environment. 11:06 Abuse screen: Denies threats or abuse. rs5 11:06 Nutritional screening: No deficits noted. Tuberculosis screening: No symptoms or risk rs5 factors identified. Assessment: 11:05 GI: Abdomen is round non-distended. rs5 11:05 General: Appears in no apparent distress. uncomfortable, Behavior is calm, cooperative. rs5 Pain: Denies pain. Neuro: Level of Consciousness is awake, alert, obeys commands, Oriented to person, place, time, situation. Cardiovascular: Patient's skin is warm and dry. Respiratory: Reports shortness of breath cough that is Airway is patent Respiratory effort is even, unlabored, Respiratory pattern is regular, symmetrical. : No signs and/or symptoms were reported regarding the genitourinary system. EENT: No signs and/or symptoms were reported regarding the EENT system. Derm: Skin is intact, Skin is pink, warm \T\ dry. Musculoskeletal: Range of motion: intact in all extremities. 12:10 Reassessment: Patient and/or family updated on plan of care and expected duration. Pain rs5 level reassessed. Patient is alert, oriented x 3, equal unlabored respirations, skin warm/dry/pink. 12:50 Reassessment: Patient and/or family updated on plan of care and expected duration. Pain rs5 level reassessed. Patient is alert, oriented x 3, equal unlabored respirations, skin warm/dry/pink. Vital Signs: 11:05 BP 133 / 91; Pulse 104; Resp 20; Temp 97.6; Pulse Ox 99% on R/A; Weight 81.65 kg; ll1 Height 5 ft. 5 in. ; Pain 8/10; 12:40 BP 127 / 84; Pulse 81; Resp 17; Pulse Ox 99% on R/A; rs5 11:05 Body Mass Index 29.95 (81.65 kg, 165.1 cm) ll1 11:05 Pain Scale: Adult ll1 ED Course: 10:58 Patient arrived in ED. mr 10:58 Jonh Noriega MD is Attending Physician. ec2 11:00 Arm band placed on. ll1 11:06 Patient has correct armband on for positive identification. Placed in gown. Bed in low rs5 position. Call light in reach. Side rails up X2. 11:06 No provider procedures requiring assistance completed. rs5 11:07 Triage completed. ll1 11:28 Timmy Rivers, RN is Primary Nurse. rs5 12:26 CXR XRAY In Process Unspecified. EDMS 12:50 Patient did not have IV access during this emergency room visit. rs5 Administered Medications: 11:28 Drug: Tessalon Perle PO 200 mg PO once Route: PO; rs5 12:10 Follow up: Response: No adverse reaction rs5 11:28 Drug: guaiFENesin PO Liquid 15 ml PO once Route: PO; rs5 12:20 Follow up: Response: No adverse reaction rs5 11:28 Drug: Acetaminophen PO 1000 mg PO once Route: PO; rs5 12:20 Follow up: Response: No adverse reaction rs5 11:28 Not Given (Patient Refused): Ondansetron Oral Disintegrating Tablet 4 mg PO once rs5 11:28 Drug: DuoNeb Nebulize (3:1) (2.5 mg - 0.5 mg) 3 ml Nebulizer once Route: Nebulizer; rs5 12:20 Follow up: Response: No adverse reaction rs5 12:42 Drug: Amoxicillin-Clavulanate PO 875 mg PO once Route: PO; rs5 Medication: 11:30 VIS not applicable for this client. rs5 Outcome: 12:41 Discharge ordered by . ec2 12:50 Discharged to home ambulatory, rs5 12:50 Condition: stable rs5 12:50 Discharge instructions given to patient, family, Instructed on discharge instructions, follow up and referral plans. medication usage, Demonstrated understanding of instructions, follow-up care, medications, Prescriptions given X 2, 12:52 Patient left the ED. rs5 13:03 Patient left the ED. rs5 Signatures: Dispatcher [employer] EDME Carissa Charles, Adan Reg Jerry Levy RN RN ll1 Timmy Rivers, HEIDY RN rs5 John Noriega MD MD ec2 Corrections: (The following items were deleted from the chart) 13:51 11:05 GI: Abdomen is round non-distended, rs5 rs5
[2024-06-27] MEDS ORDERED: AMOX/K CLAV 875 MG TAB ONE (12:55)
[2024-06-27 12:56] VITALS: BP 133/91; TEMP 97.6; O2SAT 99
== END 2024-06-27 13:03 | disposition home or self-care (01) ==
LOC: ER 10:55
DX: J15.9 Unspecified bacterial pneumonia (principal)
CPT/HCPCS: 71045; 99284; J7613; J7644; Q0162

== ENCOUNTER 2024-12-05 21:41 | Emergency (ER) | payer OTHER ==
--- OUTSIDE RECORDS SUMMARY | 2024-12-05 21:44 | XMS REPORT | Continuity of Care Document ---
Author Name Unknown Address [address] [facility] [place] [address] [facility] Address [address] [facility] [address] [place] [address] Care Team Providers Care Vice President Digital Strategist Name Role Phone Pcp, Patient Does Not Have A Primary Care Physic sierra EVELIO CAIN Attending Clinician Unavailable EVELIO CAIN Attending Clinician Unavailable Evelio Cain MD Attending Clinician Payers Payer Name Policy Type Policy Number Effective Date Expirati on Date Source [employer] [id number] 2023 00:00:00 Problems Condition Name Condition Details Condition Category Status Onset Date Resolution Date Last Treatment Date Treating Clinician Comments Source Rubella immune Rubella immune Disease Active 2012-08 00:00: 00 [facility] Encounter for routine gynecologi nickolas examinatio n Encounter for routine gynecologi nickolas examinatio n Disease Active 2012-08 00:00: 00 Overview: Formattin g of this note might be different from the original. 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 [facility] Depo-Prove ra contracept mari status Depo-Prove ra contracept mari status Disease Active 2012-08 00:00: 00 [facility] Family history of ovarian cancer Family history of ovarian cancer Disease Active 2012-08 00:00: 00 [facility] Normal delivery Normal delivery Disease Resolve d 2011-08 015 00:00: 00 2013-06-19 00:00:00 2013-06-19 15:39:46 [facility] Hypothyroi dism Hypothyroi dism Disease Resolve d 2011-08 00:00: 00 2013-06-19 00:00:00 2013-06-19 15:39:48 [facility] Other venous complicati on, with delivery, with or without mention of antepartum condition Other venous complicati on, with delivery, with or without mention of antepartum condition Disease Resolve d 2011-08 00:00: 00 2013-06-19 00:00:00 2013-06-19 15:39:51 [facility] Allergies, Adverse Reactions, Alerts Allergy Name Allergy Type Status Severity Reaction(s) Onset Date Inactive Date Treating Clinician Comments Source MORPHINE DRUG INGREDI Active SOB 2015-08 00:00: 00 [facility] Morphine Propensi ty to adverse reaction s Active Shortness of Breath 2015-08 00:00: 00 [facility] Social History Social Habit Start Date Stop Date Quantity Comments Source [facility] intake 2023-09-07 00:00:00 2023-09-07 00:00:00 0 /d [facility] History of Social function 2023-09-07 00:00:00 2023-09-07 00:00:00 [facility] Tobacco use and exposure 2012-05-28 00:00:00 2012-05-28 00:00:00 Smokeless tobacco non-user [facility] Sex assigned at 1990 00:00:00 1990 00:00:00 [facility] Smoking Status Start Date Stop Date Source Never smoked tobacco [facility] Medications Ordered Medication Name Filled Medication Name Start Date Stop Date Current Medication? Ordering Clinician Indication Dosage Frequency Signature (SIG) Comments Components Source HYDROcodone -acetaminop hen (NORCO) 10-325 mg tablet 1 tablet 04-15 02:00: 00 04-15 01:14 :00 No 1{tbl} 1 tablet, Oral, ONCE, 1 dose, On Wed04/14/24 at 2100, RIDGE [facility] ondansetron (ZOFRAN-ODT ) disintegrat ing tablet 4 mg 04-15 01:45: 00 04-15 01:14 :00 No 4mg 4 mg, Oral, ONCE, 1 dose, On Wed04/14/24 at 2045, RIDGE [facility] amoxicillin (TRIMOX) capsule 500 mg 04-15 01:00: 00 04-15 01:14 :00 No 500mg 500 mg, Oral, ONCE, 1 dose, On Wed04/14/24 at 2000, RIDGE, Reason for Anti-Infec tive: Documented Infection, Documented Infection Site: HEENT, Duration of Therapy: Once (ED) [facility] amoxicillin 500 mg capsule 04-14 00:00: 00 Yes [id number] 500mg Take 1 capsule by mouth in the morning and 1 capsule at noon and 1 capsule in the evening. [facility] ondansetron 4 mg disintegrat ing tablet 04-14 00:00: 00 Yes [id number] 4mg Take 1 tablet by mouth every 4 (four) hours as needed for Nausea and Vomiting (N/V). [facility] naproxen 500 mg tablet 04-14 00:00: 04-25 04:59 :00 No [id number] 500mg Take 1 tablet by mouth in the morning and 1 tablet in the evening. Take with meals. Do all this for 10 days. [facility] HYDROcodone -acetaminop hen 5-325 mg tablet 04-14 00:00: 00 04-22 04:59 :00 No [id number] 1{tbl} Take 1-2 tablets by mouth every 6 (six) hours as needed for Pain (scale 4-6) for up to 7 days. Indication s: acute pain [facility] ondansetron (ZOFRAN ODT) 4 mg disintegrat ing tablet - 00:00: 00 04-14 00:00 :00 No 4mg Take 1 tablet by mouth every 8 (eight) hours as needed for Nausea and Vomiting (N/V). [facility] proMETHazin e 25 mg tablet 10-02 00:00: 00 Yes 25mg Take 1 tablet by mouth every 6 (six) hours as needed for Nausea and Vomiting (N/V). [facility] promethazin e 50 mg suppository 10-02 00:00: 00 Yes 50mg Insert 1 Suppositor y into rectum every 6 (six) hours as needed for Nausea and Vomiting (N/V). [facility] ondansetron (ZOFRAN ODT) 4 mg disintegrat ing tablet 10-02 00:00: 00 04-14 00:00 :00 No 8mg Take 2 tablets by mouth every 8 (eight) hours as needed for N/V alternatin g with Promethazi ne. [facility] proMETHazin e 25 mg tablet 09-21 00:00: 00 Yes 25mg Take 1 tablet by mouth every 6 (six) hours as needed for Nausea and Vomiting (N/V). [facility] Immunizations Ordered Immunization Name Filled Immunization Name Date Status Comments Source Rubella Unknown Completed [facility] TDAP Unknown Completed [facility] Vital Signs Vital Name Observation Time Observation Value Comments S ource Systolic blood pressure 2024-04-15 01:13:00 134 mm[Hg] [facility] Diastolic blood pressure 2024-04-15 01:13:00 89 mm[Hg] [facility] Heart rate 2024-04-15 01:13:00 85 /min [facility] Body temperature 2024-04-15 01:13:[address] [facility] Respiratory rate 2024-04-15 01:13:00 16 /min [facility] Oxygen saturation in Arterial blood by Pulse oximetry 2024-04-15 01:13:00 99 /min [facility] Body height 2024-04-15 00:42:[address] [facility] Body weight 2024-04-15 00:42:[address] [facility] BMI 2024-04-15 00:42:00 27.44 kg/m2 [facility] Encounters Start Date/Time End Date/Time Encounter Type Admission Type Attending Clinicians Care Facility Care Department Encounter ID Source 2024-04-14 19:46:00 2024-04-14 20:29:00 Emergency X EVELIO CAIN CAIN EVELIO [facility] ERT [id number] [facility] 2024-04-14 19:46:00 2024-04-14 20:29:00 Emergency Evelio Cain [facility] [id number] [facility] Notes Date/Time Note Provider Source 2024-04-14 [...] ER noted upon discharge Nori Fisher RN [facility] 2024-04-14 19:41:19 Pt arrives ambulatory to ED c/o left side jaw pain and swelling that began overnight last night. She says she couldn't get into a dentist today so she came in here to get relief from the pain. Alycia Valverde RN [facility]
--- NOTE | 2024-12-05 22:27 | RAD REPORT ---
EXAMINATION: XR RIGHT KNEE CLINICAL INDICATION: Female, 34 years old. SWELLING TECHNIQUE: Multiple views of the right knee were obtained. COMPARISON: No prior exam. FINDINGS: No bone or joint abnormality seen.
[2024-12-05] MEDS ORDERED: KETOROLAC 30 MG/ML INJ ONE (22:28)
--- NOTE | 2024-12-05 22:28 | ER ---
Nurse's Notes [facility] Name: Treasure Cobian Age: 34 yrs Sex: Female : 1990 Arrival Date: 12/05/2024 Time: 21:41 Bed 2 Private MD: Diagnosis: Pain in right knee Presentation: 12/05 21:57 Chief complaint: Patient states: Right knee pain and swelling onset yesterday. Pt cm10 denies any trauma or injury. Coronavirus screen: Client denies travel out of the [place] in the last 14 days. Ebola Screen: Patient denies travel to an Ebola-affected area in the 21 days before illness onset. Initial Sepsis Screen: Does the patient meet any 2 criteria? HR > 90 bpm. Does the patient have a suspected source of infection? No. Patient's initial sepsis screen is negative. Risk Assessment: Do you want to hurt yourself or someone else? Patient reports no desire to harm self or others. Onset of symptoms was December 05, 2024. 21:57 Method Of Arrival: Ambulatory cm10 21:57 Acuity: KAILEY 4 cm10 Triage Assessment: 21:58 General: Appears in no apparent distress. uncomfortable, Behavior is calm, cooperative. cm10 Neuro: No deficits noted. Level of Consciousness is awake, alert, obeys commands, Oriented to person, place, time, situation, Appropriate for age. Respiratory: No deficits noted. Airway is patent Respiratory effort is even, unlabored, Respiratory pattern is regular, symmetrical. 22:47 Injury Description: no injury reported. 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 - Infectious Disease History:: Denies. - Social history:: Smoking status: Patient denies any tobacco usage or history of. Screenin:11 [facility] ED Fall Risk Assessment (Adult) History of falling in the last 3 months, cp4 including since admission No falls in past 3 months (0 pts) Confusion or Disorientation No (0 pts) Intoxicated or Sedated No (0 pts) Impaired Gait No (0 pts) Mobility Assist Device Used No (0 pt) Altered Elimination No (0 pt) Score/Fall Risk Level 0 - 2 = Low Risk Oriented to surroundings, Maintained a safe environment, Assessed \T\ reinforced patient's understanding of fall precautions, Hourly rounding (assess needs \T\ fall precautionary measures) done. Abuse screen: Denies threats or abuse. Denies injuries from another. Nutritional screening: No deficits noted. Tuberculosis screening: No symptoms or risk factors identified. Assessment: 22:11 General: Appears in no apparent distress. uncomfortable, Behavior is calm, cooperative, cp4 appropriate for age. Pain: Complains of pain in right knee Pain does not radiate. Pain currently is 8 out of 10 on a pain scale. Neuro: Level of Consciousness is awake, alert, obeys commands, Oriented to person, place, time, situation. Cardiovascular: Patient's skin is warm and dry. Respiratory: Airway is patent Respiratory effort is even, unlabored. GI: No signs and/or symptoms were reported involving the gastrointestinal system. : No signs and/or symptoms were reported regarding the genitourinary system. EENT: No signs and/or symptoms were reported regarding the EENT system. Derm: No signs and/or symptoms reported regarding the dermatologic system. Musculoskeletal: Reports pain in right knee. Vital Signs: 21:57 BP 141 / 90; Pulse 93; Resp 15; Temp 99.2; Pulse Ox 100% on R/A; Weight 83.91 kg; cm10 Height 5 ft. 6 in. ; Pain 8/10; 21:57 Body Mass Index 29.86 (83.91 kg, 167.64 cm) cm10 21:57 Pain Scale: Adult cm10 ED Course: 21:43 Patient arrived in ED. [email or web address] 21:48 Mary Ponce MD is Attending Physician. gb1 21:57 Triage completed. cm10 21:58 Arm band placed on right wrist. Patient placed in an exam room, on a stretcher. cm10 22:11 Bed in low position. Call light in reach. Side rails up X 1. cp4 22:11 No provider procedures requiring assistance completed. Patient did not have IV access cp4 during this emergency room visit. 22:13 Kait Mckenzie is Primary Nurse. cp4 22:18 Knee Right 3 View XRAY In Process Unspecified. EDMS 22:46 Provided Education on: knee pain. cp4 Administered Medications: 22:32 Drug: Ketorolac IM 60 mg IM once Route: IM; Site: left ventrogluteal; cp4 22:44 Follow up: Response: No adverse reaction cp4 Medication: 22:11 VIS not applicable for this client. cp4 Outcome: 22:28 Discharge ordered by . [email or web address] 22:46 Discharged to home ambulatory, cp4 22:46 Condition: stable 22:46 Discharge instructions given to patient, Instructed on discharge instructions, follow up and referral plans. Demonstrated understanding of instructions, follow-up care, 22:48 Patient left the ED. cp4 Signatures: Dispatcher [employer] EDMS Trudi Núñez Clarissa, RN RN cm10 Mary Ponce MD MD gb1 Kait Mckenize cp4
--- NOTE | 2024-12-05 22:28 | EDPHYS ---
Physician Documentation [facility] Name: Treasure Cobian Age: 34 yrs Sex: Female : 1990 Arrival Date: 12/05/2024 Time: 21:41 Bed 2 Private MD: ED Physician Mary Ponce HPI: 12/05 22:36 This 34 yrs old Female presents to ER via Ambulatory with complaints of Knee gb1 Injury, Knee Pain. 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 - Infectious Disease History:: Denies. - Social history:: Smoking status: Patient denies any tobacco usage or history of. Exam: 22:36 Constitutional: This is a well developed, well nourished patient who is awake, alert, gb1 and in no acute distress. Head/Face: Normocephalic, atraumatic. Eyes: Pupils equal round and reactive to light, extra-ocular motions intact. Lids and lashes normal. Conjunctiva and sclera are non-icteric and not injected. Cornea within normal limits. Periorbital areas with no swelling, redness, or edema. Chest/axilla: Normal chest wall appearance and motion. Nontender with no deformity. No lesions are appreciated. Cardiovascular: Regular rate and rhythm with a normal S1 and S2. No gallops, murmurs, or rubs. Normal PMI, no JVD. No pulse deficits. MS/ Extremity: Pulses equal, no cyanosis. Neurovascular intact. Limited range of motion of flexion of the leg at the knee joint. Range of motion is limited secondary to pain. Patient does have a small palpable effusion to the right lateral cephalad area. Patella is in place and intact. Vital Signs: 21:57 BP 141 / 90; Pulse 93; Resp 15; Temp 99.2; Pulse Ox 100% on R/A; Weight 83.91 kg; cm10 Height 5 ft. 6 in. ; Pain 8/10; 21:57 Body Mass Index 29.86 (83.91 kg, 167.64 cm) cm10 21:57 Pain Scale: Adult cm10 MDM: 22:00 Medical Screening Exam initiated gb1 22:36 Data reviewed: vital signs, nurses notes, radiologic studies, plain films. gb1 22:38 ED course: 34-year-old female with right knee pain with a mild palpable joint effusion. gb1 No signs of a septic knee joint. I doubt fracture or dislocation as she denies any trauma. This is likely a nontraumatic ligamentous injury. I recommend an outpatient MRI and follow-up with her primary care doctor as instructed. I recommend NSAIDs for pain she is able to walk with mild pain but without a limp. She is compliant with this plan of care for discharge.. 12/05 22:01 Order name: Knee Right 3 View XRAY; Complete Time: 22:28 gb1 Administered Medications: 22:32 Drug: Ketorolac IM 60 mg IM once Route: IM; Site: left ventrogluteal; cp4 22:44 Follow up: Response: No adverse reaction cp4 Disposition Summary: 12/05/24 22:28 Discharge Ordered Notes: Location: Home gb1 Problem: new gb1 Symptoms: have improved gb1 Condition: Stable gb1 Diagnosis - Pain in right knee gb1 Followup: gb1 - With: Private Physician - When: Today - Reason: Further diagnostic work-up Discharge Instructions: - Discharge Summary Sheet gb1 - Acute Knee Pain, Adult gb1 Forms: - Medication Reconciliation Form gb1 - Antibiotic Education gb1 - Prescription Opioid Use gb1 - Patient Portal Instructions gb1 - Leadership Thank You Letter gb1 Signatures: Dispatcher [employer] Tasha Bass RN RN cm10 Mary Ponce MD MD gb1 Kait Mckenzie cp4
[2024-12-05 22:56] VITALS: BP 141/90; TEMP 99.2; O2SAT 100
== END 2024-12-05 22:48 | disposition home or self-care (01) ==
LOC: ER 21:41
DX: M25.561 Pain in right knee (principal)
CPT/HCPCS: 96372; 99284